=== PATIENT | female | born 1935 | race Caucasian/White ===

== ENCOUNTER 2018-12-14 16:50 | Inpatient (IN) | payer MEDICARE, SELFPAY ==
[2018-12-14] VITALS (11 sets, daily range): BP systolic 134–167; BP diastolic 63–99; PULSE 81–103; RESP 16–23; TEMP 37.6–37.7; O2SAT 94–99; BMI 44.9; BMI 48.3
--- NOTE | 2018-12-14 17:16 | EKG12_ITS ---
Test Reason : Blood Pressure : / mmHG Vent. Rate : 086 BPM Atrial Rate : 086 BPM P-R Int : 220 ms QRS Dur : 092 ms QT Int : 362 ms P-R-T Axes : 095 000 095 degrees QTc Int : 433 ms Sinus rhythm with 1st degree A-V block with Premature supraventricular complexes and with occasional Premature ventricular complexes Anteroseptal infarct (cited on or before 07-JUL-2014), age undetermined Abnormal ECG Confirmed by VASQUEZ ANDERSON, CHON ([id number]), science editor DIMITRIOS STONE ([id number]) on 12/19/2018 8:23:34 AM Referred By: TIFFANY Confirmed By:CHON OVALLE MD
--- NOTE | 2018-12-14 17:17 | RAD_ITS ---
STUDY: X-RAY - LEFT TIBIA AND FIBULA REASON FOR EXAM: Female, 83 years old. Left lower extremity swelling TECHNIQUE: AP and lateral view(s) of the tibia and fibula were obtained. COMPARISON: None. FINDINGS: Normal visualized tibia. Normal visualized fibula. No acute fractures. There are tricompartmental osteophytes at the knee. There is significant soft tissue edema. There is focal 6.8 cm soft tissue density medial and posterior to the mid diaphysis of the tibia. RAD/Tibia & Fibula 2 Views IMPRESSION: significant soft tissue edema. There is focal 6.8 cm soft tissue density medial and posterior to the mid diaphysis of the tibia. This is suspicious for soft tissue mass versus infectious inflammatory process. This could be further evaluated with MRI or CT if clinically warranted No acute fractures Tricompartmental osteoarthrosis of the knee Electronically Signed: Joss Castaneda, at 20:30 EDT Tel , Service support ,
--- NOTE | 2018-12-14 17:17 | RAD_ITS ---
STUDY: X-RAY - LEFT FOOT CLINICAL: Female, 83 years old. Pain TECHNIQUE: 3 view(s) of the foot. COMPARISON: None. FINDINGS: There is significant generalized osteopenia. There is soft tissue edema. There is Hallux valgus deformity of first metatarsophalangeal joint with osteophyte formation. There is minimal 2 mm soft tissue ossification. No acute fractures. There are osteophytes at the tarsometatarsal joints.. RAD/Foot min 3 Views IMPRESSION: generalized osteopenia, no fracture Soft tissue edema Osteoarthrosis Calcaneal spur Electronically Signed: Joss Castaneda, at 20:22 EDT Tel , Service support ,
--- NOTE | 2018-12-14 17:18 | ED.VIS.GEN ---
History of Present Illness Chief Complaint: Cellulitis Informant: Patient, Family Current Severity: Moderate Maximum Severity: Severe Worsened by: palpation, moving LLE Relieved by: remaining still Narrative: For the last 2-3 days, patient has had what they thought was a stomach virus, with vomiting and diarrhea without any blood or melena, and generalized abdominal soreness, along with the chest discomfort that worsens when she vomits. The chest discomfort has been persistent today, substernal, aching. No dyspnea. She states today the vomiting and diarrhea have been better and she has been drinking fluids, but the daughter came home from work this afternoon and noticed her entire left leg is red and she does not remember seeing that before but they are unsure when exactly it started. When asked when either 1 of them saw it for sure without any erythema was 3 or 4 days ago. They state that for the last week or 7 days, she has been having edema of the leg and seeping of clear fluid in areas but no redness. She has been having fevers and chills since the vomiting and diarrhea started several days ago, and although those symptoms have improved, she continues to feel feverish today and malaised. - Past Medical History (1) Asthma Status: Chronic (2) Benign essential HTN Status: Chronic (3) COLD (chronic obstructive lung disease) Status: Chronic (4) Chronic kidney disease Status: Chronic Comment: secondary to DM (5) Diabetic neuropathy Status: Chronic (6) GERD (gastroesophageal reflux disease) Status: Chronic (7) Hyperlipidemia Status: Chronic (8) Hypothyroidism Status: Chronic (9) Morbid obesity Status: Chronic (10) PVD (peripheral vascular disease) Status: Chronic Past Medical History - Allergies and Home Meds Allergies/Adverse Reactions: Allergies homatropine [From Hycodan (with homatropin)] Allergy (Verified 12/14/18 16:54) Nausea homatropine methylbromide [From Hycodan (with homatropin)] Allergy (Verified 12/14/18 16:54) Nausea hydrocodone bitartrate [From Vicodin] Allergy (Verified 12/14/18 16:54) Other maitake mushroom Allergy (Verified 12/14/18 16:54) Rash Primary Care Physician: Nicola Dailey MD [STAFF PHYSICIAN] - Surgical History: appendectomy, cholecystectomy, tonsillectomy, - - Right oophorectomy, cardiac stents. Lives: With Family Smoking Status: Never smoker - Family History Sibling Family History: Reports: Heart Disease Paternal Family History: Reports: Diabetes, Heart Disease, - - Father at the age of 56 of emphysema. Maternal Family History: Reports: - - Her mother lived to be 97 and of old age. Review of Systems General: Reports: Chills, Fever, Malaise Eyes: Denies: Visual changes - bilaterally, Diplopia ENT: Denies: Rhinorrhea, Sore throat Cardiovascular: Reports: Chest pain. Denies: Palpitations Respiratory: Denies: Dyspnea, Cough, Dyspnea on exertion Gastrointestinal: Reports: Abdominal pain - , Nausea - sore everywhere, Vomiting, Diarrhea. Denies: Melena, Hematochezia Genitourinary: Denies: Dysuria, Hematuria, Frequency Musculoskeletal: Reports: Swelling, Extremity Pain. Denies: Back pain Skin: Reports: Rash, Wounds Neurological: Denies: Headache, Weakness, Numbness Physical Exam Vital Signs/Narrative: Vital Signs Temp Pulse Resp BP Pulse Ox 12/14/18 16:51 99.8 F H 84 16 143/76 H 96 Inital Vital Signs reviewed: Yes 1 - affected cellulitic area 2 - affected cellulitic area General: Well nourished, Well developed, Obese, Unkempt, No Acute Distress Head: Normocephalic, Atraumatic Eyes: Perrl, EOMI ENT: Moist mucous membranes, No rhinorrhea Neck: Supple, Nontender Cardiovascular: Irregular, Tachycardia Respiratory: No distress, CTA bilaterally, Chest nontender Abdomen: Soft, Nondistended, Normal bowel sounds, Tender - mild, diffuse. Negative for: Guarding, Rebound tenderness Extremities: Tenderness - throughout LLE erythemetous area, Edema - LLE > RLE w/ serous seeping; one large 5cm nonruptured bulla medial left lower leg filled w/ serous fluid; no abscesses. Skin: No Trauma, Rash - Diffuse left lower extremity extending to the medial and lateral aspects of the thigh, no palpable cords, no subcutaneous emphysema, not expanding/extending during the exam. No bleeding. Able to move knee and ankle with good short arc range of motion without significant pain, but all erythematous area in left lower extremity which is in stocking glove distribution below the knee, is very tender. There is a scab plantar aspect of the heel that is tender but no discharge. There are several ruptured bullae that appears superficial and one nonruptured medially as described above. No lymphangitis. Some petechiae within the area posteriorly/dependent. Neurological: Alert, Oriented x3, Cranial nerves II-XII grossly intact, Normal Strength, Normal Sensation Psychological: Normal affect, Normal Mood Diagnostic/Tx/Re-eval 12/14/18 17:17 Foot min 3 Views [RAD] Stat Tibia & Fibula 2 Views [RAD] Stat 12/14/18 19:05 Chest 1 View (Portable) [RAD] Stat Laboratory Results 12/14/18 12/14/18 12/14/18 17:55 17:55 17:55 WBC 13.3 H RBC 4.39 Hgb 12.7 Hct 37.9 MCV 86.3 MCH 28.9 MCHC 33.5 RDW 14.8 H RDW Differential 46.3 H Plt Count 196 MPV 9.7 Immature Gran % (Auto) 0.300 Neut % (Auto) 85.2 H Lymph % (Auto) 7.1 L Harmon % (Auto) 7.1 Eos % (Auto) 0.1 Baso % (Auto) 0.2 Absolute Neuts (auto) 11.4 H Absolute Lymphs (auto) 0.94 Total Counted Not Reportable PT 16.9 H INR 1.4 APTT 36.3 H Sodium 132 L Potassium 3.6 Chloride 98 Carbon Dioxide 25.0 Anion Gap 9 BUN 39 H Creatinine 1.63 H Estim Creat Clear Calc 24.36 Est GFR (MDRD) Af Amer 39 L Est GFR (MDRD) Non-Af 32 L BUN/Creatinine Ratio 23.9 H Glucose 217 H Lactic Acid Calcium 9.1 Total Bilirubin 0.90 AST 26 ALT 22 Alkaline Phosphatase 101 Troponin I 1.050 H* Total Protein 6.8 Albumin 2.6 L Globulin 4.2 Albumin/Globulin Ratio 0.6 L 12/14/18 17:55 WBC RBC Hgb Hct MCV MCH MCHC RDW RDW Differential Plt Count MPV Immature Gran % (Auto) Neut % (Auto) Lymph % (Auto) Harmon % (Auto) Eos % (Auto) Baso % (Auto) Absolute Neuts (auto) Absolute Lymphs (auto) Total Counted PT INR APTT Sodium Potassium Chloride Carbon Dioxide Anion Gap BUN Creatinine Estim Creat Clear Calc Est GFR (MDRD) Af Amer Est GFR (MDRD) Non-Af BUN/Creatinine Ratio Glucose Lactic Acid 1.9 Calcium Total Bilirubin AST ALT Alkaline Phosphatase Troponin I Total Protein Albumin Globulin Albumin/Globulin Ratio - Rhythm Strip Rhythm Strip: Sinus Rhythm Rate: 86 Ectopy: PVC(s) - EKG Initial EKG Interpretation: Sinus Rhythm, No Acute Injury Pattern, - - 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 PVCs. Prior: Unchanged - Medical Decision Making Patient has extensive left lower extremity cellulitis. There is the possibility that the onset and spread was extremely fast, but there is some limited history there. Therefore early in the visit after the exam, I estephania a line around the proximal extent of the erythema. On multiple rechecks during her several-hour ED stay, the redness did not change or go beyond the line. Antibiotics were ordered along with the initial work-up including blood cultures and lactate. She has a leukocytosis but more concerning is that her troponin came back at 1.050. On recheck, she states her chest discomfort is gone. On my interpretation, x-rays of the chest, foot, and lower leg are unremarkable. I see no subcutaneous/fascial air, or bony involvement. Her chest discomfort has been intermittent lasting minutes at a time for the last couple days, she thought it was related to her vomiting. She is on Eliquis and took her dose this morning. I discussed with Dr. Kimball, who advised holding her Eliquis, continuing to monitor her, he had no issue with topical nitroglycerin paste, and would evaluate her in the morning. Will admit to hospitalist for further treatment. ED Disposition - Plan for ED Patient: Disposition: Acute Care Hospital [facility] Diagnosis: NSTEMI (non-ST elevated myocardial infarction), Cellulitis of left lower extremity, CRI (chronic renal insufficiency), Nausea vomiting and diarrhea Referrals: Nicola Dailey MD [STAFF PHYSICIAN] -
[2018-12-14 18:19] LABS: Absolute Lymphocyte Count 0.94 X10^3/ul (0.83-4.51); Absolute Neutrophil Count 11.4 X10^3/uL (2.0-7.7); Basophil# 0.02 X10^3/uL; Basophil% 0.2 % (0-1); Eosinophil# 0.01 X10^3/uL; Eosinophils% 0.1 % (0-5); Hematocrit 37.9 % (37-47); Hemoglobin 12.7 g/dl (12.0-15.0); Lymphocyte # 0.94 X10^3/ul (4.0); Lymphocyte % 7.1 % (19-41); Mean Corp Hgb Conc 33.5 g/gl (32-36); Mean Corpuscular Hgb 28.9 pg (27.0-32.0); Mean Corpuscular Volume 86.3 fL (81-99); Mean Platelet Vol. 9.7 fl (6.2-12.0); Monocyte# 0.94 X10^3/uL; Monocyte% 7.1 % (0-10); Neutrophil # 11.36 X10^3/uL (2.7-7.7); Neutrophil % 85.2 % (47-70); Platelet Count 196 K/mm3 (150-450); RBC Distribution Width CV 14.8 % (11.6-14.6); RBC Distribution Width SD 46.3 fl (35.1-43.9); Red Blood Count 4.39 M/mm3 (4.2-5.4); White Blood Count 13.3 K/mm3 (4.4-11.0)
[2018-12-14 18:20] LABS: POSITIVE COUNT NO; POSITIVE DIFFERENTIAL NO; POSITIVE MORPHOLOGY NO
[2018-12-14 18:22] LABS: International Normalized Ratio 1.4; Prothrombin Time (Protime)PT. 16.9 SECONDS (11.7-14.9)
[2018-12-14 18:23] LABS: Partial Thromboplast Time 36.3 Seconds (24.1-36.2)
[2018-12-14 18:31] LABS: ALB/GLOB Ratio 0.6 RATIO (0.9-2.4); AST(SGOT) 26 U/L (15-37); Alanine Aminotransfer ALT/SGPT 22 U/L (13-56); Albumin, Serum 2.6 g/dL (3.2-5.0); Alkaline Phosphatase 101 U/L (45-117); Anion Gap 9 (5-15); BUN 39 mg/dL (7-18); BUN/Creat Ratio 23.9 RATIO (10-20); Calcium,Total 9.1 mg/dL (8.5-10.1); Chloride 98 mmol/L (98-107); Creatinine, Serum 1.63 mg/dL (0.55-1.02); EST Glomerular Filtration Rate 32 mL/min (>60); Est Glom Filt Rate - Afr Amer 39 mL/min (>60); Estimated Creatinine Clearance 24.36 ml/min; Globulin 4.2 g/dL (2.2-4.2); Glucose 217 mg/dL (74-106); Lactic Acid 1.9 mmol/L (0.4-2.0); Potassium 3.6 mmol/L (3.5-5.1); Protein, Total 6.8 g/dL (6.4-8.2); Sodium Level 132 mmol/L (136-145)
--- NOTE | 2018-12-14 19:05 | RAD_ITS ---
STUDY: X-RAY CHEST REASON FOR EXAM: Female, 83 years old. Left lower extremity swelling TECHNIQUE: Portable chest COMPARISON: 12/17/2016 FINDINGS: There is a mild left lower lobe infiltrate. There is no demonstrated pleural abnormality. Normal size heart. Normal mediastinum and leonard. Normal visualized pulmonary arteries. Normal visualized aortic arch and descending thoracic aorta. Normal visualized thoracic spine. Normal visualized ribs, clavicles, and shoulders. There is no demonstrated abnormality of the visualized soft tissue structures of the upper abdomen. RAD/Chest 1 View (Portable) IMPRESSION: Mild left lower lobe infiltrate Electronically Signed: Joss Castaneda, at 20:39 EDT Tel , Service support ,
--- NOTE | 2018-12-14 20:03 | PCM.HP.STD ---
Problem List (1) Cellulitis of left lower extremity Status: Acute (2) NSTEMI (non-ST elevated myocardial infarction) Status: Acute (3) Nausea vomiting and diarrhea Status: Acute (4) Asthma Status: Chronic Qualifiers: Asthma severity: unspecified severity Asthma persistence: unspecified Asthma complication type: unspecified Qualified Code(s): J45.909 - Unspecified asthma, uncomplicated (5) COLD (chronic obstructive lung disease) Status: Chronic Qualifiers: COPD type: unspecified COPD Qualified Code(s): J44.9 - Chronic obstructive pulmonary disease, unspecified (6) Chronic kidney disease Status: Chronic Qualifiers: Chronic kidney disease stage: stage 3 (moderate) Qualified Code(s): N18.3 - Chronic kidney disease, stage 3 (moderate) Comment: secondary to DM (7) Diabetes mellitus Status: Chronic Qualifiers: Diabetes mellitus type: type 2 Diabetes mellitus senior care insulin use: with ocean transportation intermediary use Diabetes mellitus complication status: with unspecified complications Qualified Code(s): E11.8 - Type 2 diabetes mellitus with unspecified complications; Z79.4 - buttermaker continuous churn (current) use of insulin (8) GERD (gastroesophageal reflux disease) Status: Chronic Qualifiers: Esophagitis presence: esophagitis presence not specified Qualified Code(s): K21.9 - Gastro-esophageal reflux disease without esophagitis (9) H/O coronary angioplasty Status: Chronic (10) Hyperlipidemia Status: Chronic Qualifiers: Hyperlipidemia type: unspecified Qualified Code(s): E78.5 - Hyperlipidemia, unspecified (11) Hypertension Status: Chronic Qualifiers: Hypertension type: essential hypertension Qualified Code(s): I10 - Essential (primary) hypertension (12) Hypothyroidism Status: Chronic Qualifiers: Hypothyroidism type: unspecified Qualified Code(s): E03.9 - Hypothyroidism, unspecified (13) Morbid obesity Status: Chronic (14) PVD (peripheral vascular disease) Status: Chronic History of Present Illness Date of Admission: 12/14/18 Chief Complaint: LLE pain, edema, redness The patient is a 83 y/o F w/ PMHx: Diabetes mellitus type II w/ Neuropathy, Morbid Obesity, GERD, Hypothyroidism, Allergic Rhinitis, HTN, HLD, CAD s/p PCI, Chronic COPD and Asthma, CKD stage III (baseline Cr 1.6), PVD, PAF on oral anticoagulation who presents to the [facility] ED on 12/14/18 with history of recent onset GI illness with nausea, emesis and diarrhea with fatigue, malaise with similar ill contacts ongoing now for the past 2 to 3 days with diarrhea more severe on day of presentation with additionally onset over the past 2 days left lower extremity worsened edema, redness, pain with notable posterior bullae enlarging over the last 2 weeks in addition to mid and left sternal chest discomfort described as both sharp and pressure-like in sensation, rated 4-5 out of 10 with associated nausea, dyspnea and diaphoresis over the last 48 hours, increased with any exertional effort including having to use the restroom or with coughing, lasting only minutes and resolving prompting eventual presentation to the ED given all of her ongoing acute issues. She also notes that she does have allergic rhinitis and has had ongoing mildly productive cough over the last 2 weeks with postnasal drip. Upon evaluation in ED she denies any chest discomfort. Work-up in the ED included T 99.8, heart rate 84, BP 143/76, respiratory rate 16, 96% on room air, CBC with WBC 13.3, hemoglobin 12.7, platelet 196 with left shift, coag studies with PT 16.9, INR 1.4, PTT 36.3, CMP with sodium 132, BUN/Cr 39/1.63, glucose 217, Trop 1.050, plain film of the foot and tib/fib w/ with evidence of edema, CXR w/ no acute findings, EKG w/ SR, prior evidence NJ, without acute evidence of ischemia. In the ED patient administered Zosyn. Past Medical History Past Medical History (Chronic Problems): Chronic Problems CRI (chronic renal insufficiency) (Chronic) Morbid obesity (Chronic) H/O coronary angioplasty (Chronic) Tinea unguium (Chronic) Vitamin D deficiency (Chronic) GERD (gastroesophageal reflux disease) (Chronic) Hyperlipidemia (Chronic) Hypertension (Chronic) Diabetes mellitus (Chronic) COLD (chronic obstructive lung disease) (Chronic) Chronic kidney disease (Chronic) secondary to DM Benign essential HTN (Chronic) Hypothyroidism (Chronic) Urinary incontinence (Chronic) Diabetic neuropathy (Chronic) PVD (peripheral vascular disease) (Chronic) Asthma (Chronic) Allergies homatropine [From Hycodan (with homatropin)] Allergy (Verified 12/14/18 16:54) Nausea homatropine methylbromide [From Hycodan (with homatropin)] Allergy (Verified 12/14/18 16:54) Nausea hydrocodone bitartrate [From Vicodin] Allergy (Verified 12/14/18 16:54) Other maitake mushroom Allergy (Verified 12/14/18 16:54) Rash Home Medications: Ambulatory Orders Medication Instructions Recorded Metoprolol Tartrate [Lopressor 25 mg PO BID 07/07/14 (beta susie)] Ranitidine [Zantac] 150 mg PO BID 06/18/16 Nitroglycerin (INPATIENT USE) 0.4 mg SUBLINGUAL Q5M PRN 11/18/16 [Nitrostat] Acetaminophen [Tylenol] 1,000 mg PO Q8H PRN tablet 12/28/16 Albuterol Aerosols [Ventolin 2.5 mg INHALATION Q6H PRN PRN #60 12/28/16 Aerosols] Menthol/Lanolin/Calamine/Znox 1 applic TOPICAL TID #1 tube 12/28/16 [Calmoseptine Ointment] Apixaban [Eliquis] 2.5 mg PO BID 12/14/18 Atorvastatin Calcium [Lipitor] 80 mg PO QHS 12/14/18 Cholecalciferol (Vitamin D3) 8,000 unit PO DAILY 12/14/18 [Vitamin D3] Clonidine HCl [Catapres] 0.1 mg PO BID 12/14/18 Fluticasone 0.05% [Flonase Nasal 1 spray NASAL DAILY PRN PRN 12/14/18 [place]] Hydrochlorothiazide 12.5 mg PO DAILY 12/14/18 Insulin NPH Hum/Reg Insulin Hm 10 units SQ TIDCM 12/14/18 [Relion Novolin 70-30 Vial] Insulin NPH Human Isophane 35 units SQ BID 12/14/18 [Novolin N] Levothyroxine Sodium [Synthroid] 137 mcg PO DAILY 12/14/18 Montelukast [Singulair] 10 mg PO QHS 12/14/18 Olopatadine HCl 1 drop EACH EYE DAILY 12/14/18 Surgical History: appendectomy, cholecystectomy, tonsillectomy, - - Right oophorectomy, cardiac stents. Psychiatric History: No pertinent psych hx AMUSEMENT RIDE INSPECTOR History: No pertinent AMUSEMENT RIDE INSPECTOR history Lives: With Family Smoking Status: Never smoker Tobacco Use: Non-smoker Alcohol: None Drugs: None - *Family History Sibling History Items: Heart Disease Paternal History Items: Diabetes, Heart Disease, - - Father at the age of 56 of emphysema. Maternal History Items: - - Her mother lived to be 97 and of old age. Review of Systems Constitutional: Reports: Anorexia, Malaise, Weakness, Fatigue. Denies: Chills, Fever, Weight Change HEENT: Reports: Post Nasal Drip, Sinus Congestion, Sinus Drainage. Denies: Head Aches Cardiovascular: Reports: Chest Pain, Chest Tightness, Edema. Denies: Heaviness, Light Headedness, Orthopnea, Palpitations, Syncope Respiratory: Reports: Cough, Sputum production. Denies: Shortness of breath at rest Gastrointestinal: Reports: Abdominal Pain, Diarrhea, Nausea, Vomiting Genitourinary: Reports: Incontinence. Denies: Dysuria Musculoskeletal: Reports: Back Pain, Joint Pain. Denies: Joint Tenderness Skin: Reports: Skin Changes. Denies: Rash, Wounds Neurological: Denies: Numbness, Tingling, Focal weakness Psychiatric: Denies: Anxiety, Depression, Homicidal Ideations, Suicidal Ideations Hematologic/ Lymphatic: Reports: Easy Bruising, Easy Bleeding VTE Information - Inpt Only VTE Present on Admission: No VTE Mechan Device Prophylaxis: SCD's VTE Pharm Prophylaxis ordered?: No Patient Problems: Active and Suspected Problems NSTEMI (non-ST elevated myocardial infarction) (Acute) Cellulitis of left lower extremity (Acute) Nausea vomiting and diarrhea (Acute) Subjective: Patient seated upright in the bed, fatigued appearing, notes discomfort primarily LLE and posterior region. Objective: Physical Examination: General: awake, alert, oriented x 3 and cooperative, seated upright in the ED bed in no apparent distress, fatigued and ill appearing, uncomfortable. Skin: normal color, turgor, no icterus, cyanosis except LLE w/ notable edema pedal to knee, mediolateral enlarging bullae, yellow-serous appearance, erythema circumferentially, posterior coccyx with stage II decub. HEENT: AT/NC, EOMI, PERRLA, dry MM, no carotid bruits or JVD noted; however, thickened neck makes examination difficult. Lungs: CTA bilaterally, moderate effort, moderate decrease BL bases, no rales, ronchi or wheezing, occasional coughing. Heart: Regular rate and rhythm; no gallop, rub audible. Abdomen: soft, morbidly obese, NTTP, ND, normal BS, no HSM; however, habitus makes examination difficult. : Notable excoriation, beefy red. Extremities: no cyanosis, clubbing, see skin. Neurological: patient awake, alert, oriented x 3; cognitive function intact; pupils equally reactive to light and accomodation; cranial nerves II-XII grossly normal, moving all 4 extremities although LLE notably limited secondary to pain, strength accordingly severe globally decreased. Psychiatric: affect appears fatigued, ill, no acute evidence of depressive or anxiety feelings. - Physical Exam Vital Signs Temp Pulse Resp BP Pulse Ox 99.6 F H 85 18 167/82 H 96 12/14/18 18:06 12/14/18 19:00 12/14/18 19:00 12/14/18 19:00 12/14/18 19:00 Oxygen Delivery Method Room Air Weight: 270 lb Body Mass Index (BMI) 44.9 Finger Stick Blood Glucose 575 Laboratory Tests Past 24 Hrs 12/14/18 12/14/18 12/14/18 17:55 17:55 17:55 WBC 13.3 H RBC 4.39 Hgb 12.7 Hct 37.9 MCV 86.3 MCH 28.9 MCHC 33.5 RDW 14.8 H RDW Differential 46.3 H Plt Count 196 MPV 9.7 Immature Gran % (Auto) 0.300 Neut % (Auto) 85.2 H Lymph % (Auto) 7.1 L Terrell % (Auto) 7.1 Eos % (Auto) 0.1 Baso % (Auto) 0.2 Absolute Neuts (auto) 11.4 H Absolute Lymphs (auto) 0.94 Total Counted Not Reportable PT 16.9 H INR 1.4 APTT 36.3 H Sodium 132 L Potassium 3.6 Chloride 98 Carbon Dioxide 25.0 Anion Gap 9 BUN 39 H Creatinine 1.63 H Estim Creat Clear Calc 24.36 Est GFR (MDRD) Af Amer 39 L Est GFR (MDRD) Non-Af 32 L BUN/Creatinine Ratio 23.9 H Glucose 217 H Lactic Acid Calcium 9.1 Total Bilirubin 0.90 AST 26 ALT 22 Alkaline Phosphatase 101 Troponin I 1.050 H* Total Protein 6.8 Albumin 2.6 L Globulin 4.2 Albumin/Globulin Ratio 0.6 L 12/14/18 17:55 WBC RBC Hgb Hct MCV MCH MCHC RDW RDW Differential Plt Count MPV Immature Gran % (Auto) Neut % (Auto) Lymph % (Auto) Terrell % (Auto) Eos % (Auto) Baso % (Auto) Absolute Neuts (auto) Absolute Lymphs (auto) Total Counted PT INR APTT Sodium Potassium Chloride Carbon Dioxide Anion Gap BUN Creatinine Estim Creat Clear Calc Est GFR (MDRD) Af Amer Est GFR (MDRD) Non-Af BUN/Creatinine Ratio Glucose Lactic Acid 1.9 Calcium Total Bilirubin AST ALT Alkaline Phosphatase Troponin I Total Protein Albumin Globulin Albumin/Globulin Ratio Assessment/Plan All Active Problems NSTEMI (non-ST elevated myocardial infarction) (Acute) Cellulitis of left lower extremity (Acute) Nausea vomiting and diarrhea (Acute) Hyponatremia (Acute) Cellulitis (Acute) Blister of toe of right foot (Acute) Hyperosmolar nonketotic coma in diabetes (Acute) Atrial fibrillation with rapid ventricular response (Acute) Urinary tract infection due to Klebsiella species (Acute) Community acquired pneumonia (Acute) Severe sepsis (Acute) New onset atrial fibrillation (Acute) Pneumonia (Acute) Acute respiratory failure with hypoxia (Acute) Rhinovirus infection (Acute) Cystitis (Acute) Sepsis (Acute) UTI (urinary tract infection) (Acute) Nephrolithiasis (Acute) The patient is a 83 y/o F w/ PMHx: Diabetes mellitus type II w/ Neuropathy, Morbid Obesity, GERD, Hypothyroidism, Allergic Rhinitis, HTN, HLD, CAD s/p PCI, Chronic COPD and Asthma, CKD stage III (baseline Cr 1.6), PVD, PAF on oral anticoagulation who presents to the [facility] ED on 12/14/18 with history of recent onset GI illness with nausea, emesis and diarrhea with fatigue, malaise with similar ill contacts ongoing now for the past 2 to 3 days with diarrhea more severe on day of presentation with additionally onset over the past 2 days left lower extremity worsened edema, redness, pain with notable posterior bullae enlarging over the last 2 weeks in addition to mid and left sternal chest discomfort described as both sharp and pressure-like in sensation, rated 4-5 out of 10 with associated nausea, dyspnea and diaphoresis over the last 48 hours, increased with any exertional effort including having to use the restroom or with coughing, lasting only minutes and resolving prompting eventual presentation to the ED given all of her ongoing acute issues. (1) LLE Extremity Cellulitis: Will admit to PCU given #2, maintain on IV vanc and zosyn, plan repeat CBC in AM, continue affected extremity elevation above heart when seated and in bed, monitor erythema outline with VS checks. DVT US LLE pending. (2) Chest Pain w/ Acute NSTEMI: Work-up in the ED included T 99.8, heart rate 84, BP 143/76, respiratory rate 16, 96% on room air, CBC with WBC 13.3, hemoglobin 12.7, platelet 196 with left shift, coag studies with PT 16.9, INR 1.4, PTT 36.3, CMP with sodium 132, BUN/Cr 39/1.63, glucose 217, Trop 1.050, plain film of the foot and tib/fib w/ with evidence of edema, CXR w/ no acute findings, EKG w/ SR, prior evidence [place], without acute evidence of ischemia. Will maintain on a monitored bed, continue serial cardiac enzymes and EKGs. Obtain magnesium level upon admission. Holding eliquis. Continue medical management w/ asa, BB, statin w/ AM FLP. ECHO ordered. Cardiology consulted. ASA, NG, morphine. (3) N/V/D, Gastroenteritis, Suspect likely Viral (Recent similar ill contacts): Will continue hydration, will obtain c diff, stool cx with repeat AM CBC. Suspect viral gastroenteritis. Anti-emetics, pain regimen PRN. (4) Allergic Rhinitis with Post-nasal drip: Cough ongoing, allergies notable, mildly productive cough, CXR without acute findings, will maintain on ATC duoneb, PRN albuterol, flonase, singulair regimen. (5) Stage II Coccyx Decubitous Ulcer: Barrier cream, offloading, wound RN consultation. (6) CAD: Holding eliquis, maintain on asa, BB, statin. (7) PAF: SR on EKG upon presentation, holding eliquis, maintain on BB. (8) Hyperlipidemia: Continue home statin regimen. AM FLP. (9) Hypertension: Continue home regimen including clonidine, metoprolol, PRN hydralazine. (10) Hypothyroidism: Continue home synthroid regimen. (11) Chronic COPD and Asthma: Will maintain on oxygen with wean as tolerated to room air, continue ATC duonebs, PRN albuterol, HOB, IS parameters. (12) Diabetes mellitus type II with neuropathy: Hold oral home regimen, continue home insulin regimen, ADA diet, accu checks w/ ISS. (13) Morbid Obesity: Weight loss and lifestyle changes encouraged, nutrition consulted. (14) Chronic Kidney Disease Stage III: Admission BUN/Cr 39/1.63, baseline renal function 1.6, stable, repeat BMP in AM. (15) GERD: Continue home ranitidine. (16) DVT Prophylaxis: SCDs, holding eliquis. Code Visit Inpatient E&M: 58762 Init Hosp L3
--- NOTE | 2018-12-14 20:09 | HP.PCM_ITS ---
Problem List (1) Cellulitis of left lower extremity Status: Acute (2) NSTEMI (non-ST elevated myocardial infarction) Status: Acute (3) Nausea vomiting and diarrhea Status: Acute (4) Asthma Status: Chronic Qualifiers: Asthma severity: unspecified severity Asthma persistence: unspecified Asthma complication type: unspecified Qualified Code(s): J45.909 - Unspecified asthma, uncomplicated (5) COLD (chronic obstructive lung disease) Status: Chronic Qualifiers: COPD type: unspecified COPD Qualified Code(s): J44.9 - Chronic obstructive pulmonary disease, unspecified (6) Chronic kidney disease Status: Chronic Qualifiers: Chronic kidney disease stage: stage 3 (moderate) Qualified Code(s): N18.3 - Chronic kidney disease, stage 3 (moderate) Comment: secondary to DM (7) Diabetes mellitus Status: Chronic Qualifiers: Diabetes mellitus type: type 2 Diabetes mellitus assistant terminal manager insulin use: with assistant terminal manager use Diabetes mellitus complication status: with unspecified complications Qualified Code(s): E11.8 - Type 2 diabetes mellitus with unspecified complications; Z79.4 - assistant terminal manager (current) use of insulin (8) GERD (gastroesophageal reflux disease) Status: Chronic Qualifiers: Esophagitis presence: esophagitis presence not specified Qualified Code(s): K21.9 - Gastro-esophageal reflux disease without esophagitis (9) H/O coronary angioplasty Status: Chronic (10) Hyperlipidemia Status: Chronic Qualifiers: Hyperlipidemia type: unspecified Qualified Code(s): E78.5 - Hyperlipidemia, unspecified (11) Hypertension Status: Chronic Qualifiers: Hypertension type: essential hypertension Qualified Code(s): I10 - Essential (primary) hypertension (12) Hypothyroidism Status: Chronic Qualifiers: Hypothyroidism type: unspecified Qualified Code(s): E03.9 - Hypothyroidism, unspecified (13) Morbid obesity Status: Chronic (14) PVD (peripheral vascular disease) Status: Chronic History of Present Illness Date of Admission: 12/14/18 Chief Complaint: LLE pain, edema, redness The patient is a 83 y/o F w/ PMHx: Diabetes mellitus type II w/ Neuropathy, Morbid Obesity, GERD, Hypothyroidism, Allergic Rhinitis, HTN, HLD, CAD s/p PCI, Chronic COPD and Asthma, CKD stage III (baseline Cr 1.6), PVD, PAF on oral anticoagulation who presents to the [facility] ED on 12/14/18 with history of recent onset GI illness with nausea, emesis and diarrhea with fatigue, malaise with similar ill contacts ongoing now for the past 2 to 3 days with diarrhea more severe on day of presentation with additionally onset over the past 2 days left lower extremity worsened edema, redness, pain with notable posterior bullae enlarging over the last 2 weeks in addition to mid and left sternal chest discomfort described as both sharp and pressure-like in sensation, rated 4-5 out of 10 with associated nausea, dyspnea and diaphoresis over the last 48 hours, increased with any exertional effort including having to use the restroom or with coughing, lasting only minutes and resolving prompting eventual presentation to the ED given all of her ongoing acute issues. She also notes that she does have allergic rhinitis and has had ongoing mildly productive cough over the last 2 weeks with postnasal drip. Upon evaluation in ED she denies any chest discomfort. Work-up in the ED included T 99.8, heart rate 84, BP 143/76, respiratory rate 16, 96% on room air, CBC with WBC 13.3, hemoglobin 12.7, platelet 196 with left shift, coag studies with PT 16.9, INR 1.4, PTT 36.3, CMP with sodium 132, BUN/Cr 39/1.63, glucose 217, Trop 1.050, plain film of the foot and tib/fib w/ with evidence of edema, CXR w/ no acute findings, EKG w/ SR, prior evidence LA, without acute evidence of ischemia. In the ED patient administered Zosyn. Past Medical History Past Medical History (Chronic Problems): Chronic Problems CRI (chronic renal insufficiency) (Chronic) Morbid obesity (Chronic) H/O coronary angioplasty (Chronic) Tinea unguium (Chronic) Vitamin D deficiency (Chronic) GERD (gastroesophageal reflux disease) (Chronic) Hyperlipidemia (Chronic) Hypertension (Chronic) Diabetes mellitus (Chronic) COLD (chronic obstructive lung disease) (Chronic) Chronic kidney disease (Chronic) secondary to DM Benign essential HTN (Chronic) Hypothyroidism (Chronic) Urinary incontinence (Chronic) Diabetic neuropathy (Chronic) PVD (peripheral vascular disease) (Chronic) Asthma (Chronic) Allergies homatropine [From Hycodan (with homatropin)] Allergy (Verified 12/14/18 16:54) Nausea homatropine methylbromide [From Hycodan (with homatropin)] Allergy (Verified 12/14/18 16:54) Nausea hydrocodone bitartrate [From Vicodin] Allergy (Verified 12/14/18 16:54) Other maitake mushroom Allergy (Verified 12/14/18 16:54) Rash Home Medications: Ambulatory Orders Medication Instructions Recorded Metoprolol Tartrate [Lopressor 25 mg PO BID 07/07/14 (beta susie)] Ranitidine [Zantac] 150 mg PO BID 06/18/16 Nitroglycerin (INPATIENT USE) 0.4 mg SUBLINGUAL Q5M PRN 11/18/16 [Nitrostat] Acetaminophen [Tylenol] 1,000 mg PO Q8H PRN tablet 12/28/16 Albuterol Aerosols [Ventolin 2.5 mg INHALATION Q6H PRN PRN #60 12/28/16 Aerosols] Menthol/Lanolin/Calamine/Znox 1 applic TOPICAL TID #1 tube 12/28/16 [Calmoseptine Ointment] Apixaban [Eliquis] 2.5 mg PO BID 12/14/18 Atorvastatin Calcium [Lipitor] 80 mg PO QHS 12/14/18 Cholecalciferol (Vitamin D3) 8,000 unit PO DAILY 12/14/18 [Vitamin D3] Clonidine HCl [Catapres] 0.1 mg PO BID 12/14/18 Fluticasone 0.05% [Flonase Nasal 1 spray NASAL DAILY PRN PRN 12/14/18 [place]] Hydrochlorothiazide 12.5 mg PO DAILY 12/14/18 Insulin NPH Hum/Reg Insulin Hm 10 units SQ TIDCM 12/14/18 [Relion Novolin 70-30 Vial] Insulin NPH Human Isophane 35 units SQ BID 12/14/18 [Novolin N] Levothyroxine Sodium [Synthroid] 137 mcg PO DAILY 12/14/18 Montelukast [Singulair] 10 mg PO QHS 12/14/18 Olopatadine HCl 1 drop EACH EYE DAILY 12/14/18 Surgical History: appendectomy, cholecystectomy, tonsillectomy, - - Right oophorectomy, cardiac stents. Psychiatric History: No pertinent psych hx OBSTETRIC ANAESTHETIST History: No pertinent OBSTETRIC ANAESTHETIST history Lives: With Family Smoking Status: Never smoker Tobacco Use: Non-smoker Alcohol: None Drugs: None - *Family History Sibling History Items: Heart Disease Paternal History Items: Diabetes, Heart Disease, - - Father at the age of 56 of emphysema. Maternal History Items: - - Her mother lived to be 97 and of old age. Review of Systems Constitutional: Reports: Anorexia, Malaise, Weakness, Fatigue. Denies: Chills, Fever, Weight Change HEENT: Reports: Post Nasal Drip, Sinus Congestion, Sinus Drainage. Denies: Head Aches Cardiovascular: Reports: Chest Pain, Chest Tightness, Edema. Denies: Heaviness, Light Headedness, Orthopnea, Palpitations, Syncope Respiratory: Reports: Cough, Sputum production. Denies: Shortness of breath at rest Gastrointestinal: Reports: Abdominal Pain, Diarrhea, Nausea, Vomiting Genitourinary: Reports: Incontinence. Denies: Dysuria Musculoskeletal: Reports: Back Pain, Joint Pain. Denies: Joint Tenderness Skin: Reports: Skin Changes. Denies: Rash, Wounds Neurological: Denies: Numbness, Tingling, Focal weakness Psychiatric: Denies: Anxiety, Depression, Homicidal Ideations, Suicidal Ideations Hematologic/ Lymphatic: Reports: Easy Bruising, Easy Bleeding VTE Information - Inpt Only VTE Present on Admission: No VTE Mechan Device Prophylaxis: SCD's VTE Pharm Prophylaxis ordered?: No Patient Problems: Active and Suspected Problems NSTEMI (non-ST elevated myocardial infarction) (Acute) Cellulitis of left lower extremity (Acute) Nausea vomiting and diarrhea (Acute) Subjective: Patient seated upright in the bed, fatigued appearing, notes discomfort p rimarily LLE and posterior region. Objective: Physical Examination: General: awake, alert, oriented x 3 and cooperative, seated upright in the ED bed in no apparent distress, fatigued and ill appearing, uncomfortable. Skin: normal color, turgor, no icterus, cyanosis except LLE w/ notable edema pedal to knee, mediolateral enlarging bullae, yellow-serous appearance, erythema circumferentially, posterior coccyx with stage II decub. HEENT: AT/NC, EOMI, PERRLA, dry MM, no carotid bruits or JVD noted; however, thickened neck makes examination difficult. Lungs: CTA bilaterally, moderate effort, moderate decrease BL bases, no rales, ronchi or wheezing, occasional coughing. Heart: Regular rate and rhythm; no gallop, rub audible. Abdomen: soft, morbidly obese, NTTP, ND, normal BS, no HSM; however, habitus makes examination difficult. : Notable excoriation, beefy red. Extremities: no cyanosis, clubbing, see skin. Neurological: patient awake, alert, oriented x 3; cognitive function intact; pupils equally reactive to light and accomodation; cranial nerves II-XII grossly normal, moving all 4 extremities although LLE notably limited secondary to pain, strength accordingly severe globally decreased. Psychiatric: affect appears fatigued, ill, no acute evidence of depressive or anxiety feelings. - Physical Exam Vital Signs Temp Pulse Resp BP Pulse Ox 99.6 F H 85 18 167/82 H 96 12/14/18 18:06 12/14/18 19:00 12/14/18 19:00 12/14/18 19:00 12/14/18 19:00 Oxygen Delivery Method Room Air Weight: 270 lb Body Mass Index (BMI) 44.9 Finger Stick Blood Glucose 575 Laboratory Tests Past 24 Hrs 12/14/18 12/14/18 12/14/18 17:55 17:55 17:55 WBC 13.3 H RBC 4.39 Hgb 12.7 Hct 37.9 MCV 86.3 MCH 28.9 MCHC 33.5 RDW 14.8 H RDW Differential 46.3 H Plt Count 196 MPV 9.7 Immature Gran % (Auto) 0.300 Neut % (Auto) 85.2 H Lymph % (Auto) 7.1 L [place] % (Auto) 7.1 Eos % (Auto) 0.1 Baso % (Auto) 0.2 Absolute Neuts (auto) 11.4 H Absolute Lymphs (auto) 0.94 Total Counted Not Reportable PT 16.9 H INR 1.4 APTT 36.3 H Sodium 132 L Potassium 3.6 Chloride 98 Carbon Dioxide 25.0 Anion Gap 9 BUN 39 H Creatinine 1.63 H Estim Creat Clear Calc 24.36 Est GFR (MDRD) Af Amer 39 L Est GFR (MDRD) Non-Af 32 L BUN/Creatinine Ratio 23.9 H Glucose 217 H Lactic Acid Calcium 9.1 Total Bilirubin 0.90 AST 26 ALT 22 Alkaline Phosphatase 101 Troponin I 1.050 H* Total Protein 6.8 Albumin 2.6 L Globulin 4.2 Albumin/Globulin Ratio 0.6 L 12/14/18 17:55 WBC RBC Hgb Hct MCV MCH MCHC RDW RDW Differential Plt Count MPV Immature Gran % (Auto) Neut % (Auto) Lymph % (Auto) [place] % (Auto) Eos % (Auto) Baso % (Auto) Absolute Neuts (auto) Absolute Lymphs (auto) Total Counted PT INR APTT Sodium Potassium Chloride Carbon Dioxide Anion Gap BUN Creatinine Estim Creat Clear Calc Est GFR (MDRD) Af Amer Est GFR (MDRD) Non-Af BUN/Creatinine Ratio Glucose Lactic Acid 1.9 Calcium Total Bilirubin AST ALT Alkaline Phosphatase Troponin I Total Protein Albumin Globulin Albumin/Globulin Ratio Assessment/Plan All Active Problems NSTEMI (non-ST elevated myocardial infarction) (Acute) Cellulitis of left lower extremity (Acute) Nausea vomiting and diarrhea (Acute) Hyponatremia (Acute) Cellulitis (Acute) Blister of toe of right foot (Acute) Hyperosmolar nonketotic coma in diabetes (Acute) Atrial fibrillation with rapid ventricular response (Acute) Urinary tract infection due to Klebsiella species (Acute) Community acquired pneumonia (Acute) Severe sepsis (Acute) New onset atrial fibrillation (Acute) Pneumonia (Acute) Acute respiratory failure with hypoxia (Acute) Rhinovirus infection (Acute) Cystitis (Acute) Sepsis (Acute) UTI (urinary tract infection) (Acute) Nephrolithiasis (Acute) The patient is a 83 y/o F w/ PMHx: Diabetes mellitus type II w/ Neuropathy, Morbid Obesity, GERD, Hypothyroidism, Allergic Rhinitis, HTN, HLD, CAD s/p PCI, Chronic COPD and Asthma, CKD stage III (baseline Cr 1.6), PVD, PAF on oral anticoagulation who presents to the [facility] ED on 12/14/18 with history of recent onset GI illness with nausea, emesis and diarrhea with fatigue, malaise with similar ill contacts ongoing now for the past 2 to 3 days with diarrhea more severe on day of presentation with additionally onset over the past 2 days left lower extremity worsened edema, redness, pain with notable posterior bullae enlarging over the last 2 weeks in addition to mid and left sternal chest discomfort described as both sharp and pressure-like in sensation, rated 4-5 out of 10 with associated nausea, dyspnea and diaphoresis over the last 48 hours, increased with any exertional effort including having to use the restroom or with coughing, lasting only minutes and resolving prompting eventual presentation to the ED given all of her ongoing acute issues. (1) LLE Extremity Cellulitis: Will admit to PCU given #2, maintain on IV vanc and zosyn, plan repeat CBC in AM, continue affected extremity elevation above heart when seated and in bed, monitor erythema outline with VS checks. DVT US LLE pending. (2) Chest Pain w/ Acute NSTEMI: Work-up in the ED included T 99.8, heart rate 84, BP 143/76, respiratory rate 16, 96% on room air, CBC with WBC 13.3, hemoglobin 12.7, platelet 196 with left shift, coag studies with PT 16.9, INR 1.4, PTT 36.3, CMP with sodium 132, BUN/Cr 39/1.63, glucose 217, Trop 1.050, violeta in film of the foot and tib/fib w/ with evidence of edema, CXR w/ no acute findings, EKG w/ SR, prior evidence LA, without acute evidence of ischemia. Will maintain on a monitored bed, continue serial cardiac enzymes and EKGs. Obtain magnesium level upon admission. Holding eliquis. Continue medical management w/ asa, BB, statin w/ AM FLP. ECHO ordered. Cardiology consulted. ASA, NG, morphine. (3) N/V/D, Gastroenteritis, Suspect likely Viral (Recent similar ill contacts): Will continue hydration, will obtain c diff, stool cx with repeat AM CBC. Suspect viral gastroenteritis. Anti-emetics, pain regimen PRN. (4) Allergic Rhinitis with Post-nasal drip: Cough ongoing, allergies notable, mildly productive cough, CXR without acute findings, will maintain on ATC duoneb, PRN albuterol, flonase, singulair regimen. (5) Stage II Coccyx Decubitous Ulcer: Barrier cream, offloading, wound RN consultation. (6) CAD: Holding eliquis, maintain on asa, BB, statin. (7) PAF: SR on EKG upon presentation, holding eliquis, maintain on BB. (8) Hyperlipidemia: Continue home statin regimen. AM FLP. (9) Hypertension: Continue home regimen including clonidine, metoprolol, PRN hydralazine. (10) Hypothyroidism: Continue home synthroid regimen. (11) Chronic COPD and Asthma: Will maintain on oxygen with wean as tolerated to room air, continue ATC duonebs, PRN albuterol, HOB, IS parameters. (12) Diabetes mellitus type II with neuropathy: Hold oral home regimen, continue home insulin regimen, ADA diet, accu checks w/ ISS. (13) Morbid Obesity: Weight loss and lifestyle changes encouraged, nutrition consulted. (14) Chronic Kidney Disease Stage III: Admission BUN/Cr 39/1.63, baseline renal function 1.6, stable, repeat BMP in AM. (15) GERD: Continue home ranitidine. (16) DVT Prophylaxis: SCDs, holding eliquis. Code Visit Inpatient E&M: 19213 Init Hosp L3
[2018-12-14 20:59] LABS: Red Blood Cells-Urine 0 SEEN /hpf (0-5)
[2018-12-14 21:00] LABS: Color, Urine Yellow (Yellow); Glucose, Dipstick Normal (Normal); Ketone-Dipstick Negative (Negative); Leukocyte Esterase-Dipstick 500 /ul (Negative); Nitrite-Dipstick Positive (Negative); Occult Blood-Urine 150 /ul (Negative); Protein-Dipstick 100 mg/dl (Negative); Urine Bilirubin Dipstick Negative (Negative); Urine Clarity Cloudy (Clear); Urine Urobilinogen Normal (Normal)
[2018-12-14 21:06] LABS: White Blood Cells >100 SEEN /hpf (0-5)
[2018-12-14 21:07] LABS: Bacteria 2+ /hpf (None Seen); Squamous Epithelial Cells - UA 5-10 SEEN /hpf (5-10)
[2018-12-14 21:08] LABS: Mucous, Urine RARE /hpf (<or=2+)
--- NOTE | 2018-12-14 21:22 | NURSING ---
pt states she is not having chest pain at this moment. pt does have headache and would like Tylenol. awaiting for MD ti inform him; currently MD is in another pt room.
[2018-12-14] MEDS: Acetaminophen 325 MG Tablet 650 MG PO (21:33)
--- NOTE | 2018-12-14 21:44 | ECHOD_ITS ---
Reason For Study: CP Procedure This was a 2D Doppler, Color Flow transthoracic echocardiogram. Exam performed portable in patient room. Left Ventricle Normal size and thickness. The estimated ejection fraction is 65 %. No regional wall motion abnormalities noted. Right Ventricle Normal size and thickness. Normal systolic function. Atria Normal left atrium. Normal right atrium. Normal atrial septum. Mitral Valve Mild diffuse mitral valve thickening. Moderate mitral annular calcification extending into the posterior leaflet. Trivial mitral valve insufficiency. Tricuspid Valve Normal tricuspid valve. Unable to estimate RV systolic pressure due to inadequate jet, pulmonary artery pressure probably normal. Aortic Valve Trisinus/trileaflet aortic valve. Mild focal aortic valve thickening. There is no aortic stenosis. Pulmonic Valve Normal pulmonic valve. Great Vessels Normal aortic root. Normal arch. Normal inferior vena cava. Inferior vena cava collapse with sniff. Pericardium/Pleural No pericardial effusion. MMode/2D Measurements & Calculations LVIDd: 3.7 cm IVSd: 1.1 cm LA dimension: 3.6 cm LVIDs: 2.5 cm LVPWd: 0.98 cm RVDd: 3.3 cm FS: 33.1 % LAV(MOD-bp): 51.3 ml LVAd ap4: 23.8 cm2 SV(MOD-sp4): 38.0 ml LAV(MOD-bp) Indexed: 22.1 ml/m2 EDV(MOD-sp4): 62.0 ml LAV(MOD-sp2): 52.4 ml EDV(sp4-el): 64.1 ml LAV(MOD-sp4): 50.2 ml LVAs ap4: 12.8 cm2 ESV(MOD-sp4): 24.0 ml ESV(sp4-el): 23.6 ml EF(MOD-sp4): 61.3 % EF(sp4-el): 63.2 % SV(sp4-el): 40.5 ml LA A4 area: 18.5 cm2 RA A4 area: 15.1 cm2 Time Measurements MV dec time: 0.17 sec Doppler Measurements & Calculations MV E max cory: 166.2 cm/sec Lat Peak E' Cory: 10.3 cm/sec Med Peak E' Cory: 8.3 cm/sec MV A max cory: 81.4 cm/sec E/E' lat: 16.1 E/E' med: 20.1 MV E/A: 2.0 MV V2 max: 201.3 cm/sec Ao V2 max: 147.7 cm/sec LV V1 max: 102.6 cm/sec MV max P.2 mmHg Ao max P.7 mmHg LV V1 max P.2 mmHg MV V2 mean: 90.2 cm/sec MV mean P.4 mmHg MV V2 VTI: 53.6 cm PA V2 max: 78.0 cm/sec Interpretation Summary The estimated ejection fraction is 65 %. Trivial mitral valve insufficiency. Mild focal aortic valve thickening. Compared to echo report dated 12/13/2016, no appreciabl echanges noted. The study was technically difficult. Ordering Physician: Eugenia Briceno Performed By: Sergey Garcia RCS
--- NOTE | 2018-12-14 21:44 | VDLE_ITS ---
Reason For Study: Pain, LLE cellulitis Procedure LEFT Exam performed portable in patient room. GSV is normal. Limited views were obtained in the calf due CFV is compressible, spontaneous, phasic, to bandages. competent, and demonstrates normal A preliminary report was called and/or faxed augmentation. to U Nurse. FV is compressible, spontaneous, phasic, competent and demonstrates normal augmentation. POP V is compressible, spontaneous, phasic, competent and demonstrates normal augmentation. T/P Trunk is compressible. PTV is compressible. LT PerV is compressible. Interpretation Summary There is no evidence of left lower extremity deep vein thrombosis. Left greater saphenous vein appears patent and compressible segmentally. Limited exam secondary to bandages Ordering Physician: Eugenia Briceno Performed By: Anna Chen RVT
--- NOTE | 2018-12-14 21:44 | EKG12_ITS ---
Test Reason : CP ADMIT Blood Pressure : / mmHG Vent. Rate : 083 BPM Atrial Rate : 083 BPM P-R Int : 210 ms QRS Dur : 090 ms QT Int : 390 ms P-R-T Axes : 055 -01 093 degrees QTc Int : 458 ms Sinus rhythm with 1st degree A-V block with Premature supraventricular complexes and with occasional Premature ventricular complexes Anteroseptal infarct , age undetermined Abnormal ECG When compared with ECG of 14-DEC-2018 17:36, MANUAL COMPARISON REQUIRED, DATA IS UNCONFIRMED Confirmed by VASQUEZ ANDERSON, CHON ([id number]), film or videotape editor KERRI DICKINSON ([id number]) on 12/15/2018 8:09:11 AM Referred By: DR ALONSO Confirmed By:CHON OVALLE MD
[2018-12-14 22:34] LABS: Magnesium 1.9 mg/dL (1.6-2.6)
[2018-12-14] MEDS: 0.9% Normal Saline 1,000 ML 100 ML IV (22:59)
[2018-12-14] MEDS: Insulin Lispro 100 UNIT/ML INSULN.PEN SQ (23:17)
[2018-12-14] MEDS: Famotidine 20 MG Tablet PO (23:18)
[2018-12-14] MEDS: Metoprolol Tartrate 25 MG Tablet PO (23:18)
[2018-12-14] MEDS: cloNIDine HCl 0.1 MG Tablet PO (23:18)
[2018-12-14] MEDS: Nitroglycerin Oint 1 INCH PACKET 0.5 INCH TRANSDERM. (23:18)
[2018-12-14] MEDS: Montelukast 10 MG Tablet PO (23:18)
[2018-12-14] MEDS: Nystatin Powder 15gm Bottle 1 APPLIC TOPICAL (23:19)
[2018-12-14] MEDS: Menthol/Lanolin/Calamine/Znox 113 GM Tube 1 APPLIC TOPICAL (23:20)
--- NOTE | 2018-12-14 23:20 | PHA.PHARE_ITS ---
Consult Pharmacy has been consulted to manage selected antiobiotic: Vancomycin Type of Consult: New start Suspected Infection: Skin/Soft tissue Prior Doses of Antibiotics Received/Current Regimen: Medications Piperacillin Sod/Tazobactam (Sod 3.375 gm/ Sodium Chloride) 50 mls @ 12.5 mls/hr IV Q8 [facility] Last Admin: 12/14/18 22:59 Dose: 12.5 mls/hr Labs: Sodium 132 mmol/L (136-145) L 12/14/18 17:55 Potassium 3.6 mmol/L (3.5-5.1) 12/14/18 17:55 Chloride 98 mmol/L (98-107) 12/14/18 17:55 Carbon Dioxide 25.0 mmol/L (21.0-32.0) 12/14/18 17:55 Anion Gap 9 (5-15) 12/14/18 17:55 BUN 39 mg/dL (7-18) H 12/14/18 17:55 Creatinine 1.63 mg/dL (0.55-1.02) H 12/14/18 17:55 Est GFR (MDRD) Af Amer 39 mL/min (>60) L 12/14/18 17:55 Est GFR (MDRD) Non-Af 32 mL/min (>60) L 12/14/18 17:55 BUN/Creatinine Ratio 23.9 RATIO (10-20) H 12/14/18 17:55 Glucose 217 mg/dL (74-106) H 12/14/18 17:55 Weight used for dosin.7 kg Estimated Creatinine Clearance: 37 Goal Trough: 10-15 mcg/mL Pharmacy Plan for Drug Dosing: Pharmacy Service will continue to monitor and adjust dosing as required. Medications Vancomycin HCl 2,000 mg/ (Sodium Chloride) 540 mls @ 250 mls/hr IV X1 ONE Stop: 12/15/18 05:09 Vancomycin HCl 1,250 mg/ (Sodium Chloride) 275 mls @ 167 mls/hr IV Q24H [facility] Follow-Up Labs: Trough Vancomycin Labs to be done on [date and time ordered]: 12/17 @ 8012
[2018-12-14 23:41] LABS: Bedside Glucose 206 mg/dL (70-110)
[2018-12-15] VITALS (18 sets, daily range): BP systolic 127–145; BP diastolic 55–68; PULSE 66–102; RESP 14–17; TEMP 36.6–37.8; O2SAT 95–97
[2018-12-15] MEDS: Acetaminophen 325 MG Tablet 650 MG PO ×3 (03:50→18:16)
[2018-12-15] MEDS: Nitroglycerin Oint 1 INCH PACKET 0.5 INCH TRANSDERM. ×3 (05:08→18:11)
[2018-12-15] MEDS: Levothyroxine 137 MCG Tablet PO (05:08)
[2018-12-15] MEDS: Nystatin Powder 15gm Bottle 1 APPLIC TOPICAL ×3 (05:09→21:33)
[2018-12-15] MEDS: LORazepam 0.5 MG Tablet PO (05:09)
--- NOTE | 2018-12-15 05:55 | EKG12_ITS ---
Test Reason : AM EKG Blood Pressure : / mmHG Vent. Rate : 080 BPM Atrial Rate : 357 BPM P-R Int : 000 ms QRS Dur : 092 ms QT Int : 386 ms P-R-T Axes : 000 002 103 degrees QTc Int : 445 ms Atrial fibrillation Anteroseptal infarct , age undetermined Abnormal ECG When compared with ECG of 14-DEC-2018 23:06, MANUAL COMPARISON REQUIRED, DATA IS UNCONFIRMED Confirmed by VASQUEZ ANDERSON, CHON ([id number]), supervising film or videotape editor KERRI DICKINSON ([id number]) on 12/15/2018 8:08:01 AM Referred By: DR ALNOSO Confirmed By:CHON OVALLE MD
[2018-12-15 06:28] LABS: International Normalized Ratio 1.3; Partial Thromboplast Time 34.6 Seconds (24.1-36.2); Prothrombin Time (Protime)PT. 16.4 SECONDS (11.7-14.9)
[2018-12-15 06:30] LABS: Hematocrit 35.1 % (37-47); Hemoglobin 11.6 g/dl (12.0-15.0); Mean Corpuscular Hgb 28.6 pg (27.0-32.0); Mean Corpuscular Volume 86.5 fL (81-99); Mean Platelet Vol. 9.8 fl (6.2-12.0); Platelet Count 179 K/mm3 (150-450); RBC Distribution Width CV 14.7 % (11.6-14.6); RBC Distribution Width SD 45.4 fl (35.1-43.9); Red Blood Count 4.06 M/mm3 (4.2-5.4); White Blood Count 12.7 K/mm3 (4.4-11.0)
[2018-12-15 06:31] LABS: Scan Indicated on CBC? Y/N NO
[2018-12-15 06:43] LABS: ALB/GLOB Ratio 0.5 RATIO (0.9-2.4); AST(SGOT) 23 U/L (15-37); Alanine Aminotransfer ALT/SGPT 21 U/L (13-56); Albumin, Serum 2.1 g/dL (3.2-5.0); Alkaline Phosphatase 90 U/L (45-117); Anion Gap 11 (5-15); BUN 36 mg/dL (7-18); Calcium,Total 8.5 mg/dL (8.5-10.1); Chloride 102 mmol/L (98-107); Cholesterol 67 mg/dL (200); EST Glomerular Filtration Rate 35 mL/min (>60); Est Glom Filt Rate - Afr Amer 43 mL/min (>60); Estimated Creatinine Clearance 26.47 ml/min; Glucose 223 mg/dL (74-106); High Density Lipoprotein 32 mg/dL; Potassium 3.4 mmol/L (3.5-5.1); Protein, Total 6.1 g/dL (6.4-8.2); Sodium Level 135 mmol/L (136-145); Triglycerides 81 mg/dL; Very Low Density Lipoprotein 16 mg/dL (5-40)
[2018-12-15 06:46] LABS: Bedside Glucose 226 mg/dL (70-110)
[2018-12-15] MEDS: Ipratropium/Albuterol Sulfate 3 ML AMPUL.NEB INHALATION ×3 (07:15→19:30)
[2018-12-15] MEDS: Metoprolol Tartrate 25 MG Tablet PO ×2 (09:08→21:28)
[2018-12-15] MEDS: Glucerna Shake 120 ML LIQUID PO ×3 (09:08→17:46)
[2018-12-15] MEDS: cloNIDine HCl 0.1 MG Tablet PO ×2 (09:08→21:28)
[2018-12-15] MEDS: Famotidine 20 MG Tablet PO ×2 (09:09→21:29)
[2018-12-15] MEDS: Aspirin E.C. 81 MG Tablet PO (09:09)
[2018-12-15] MEDS: Fluticasone 0.05% 1 SPRAY NASAL.SRY NASAL (09:10)
[2018-12-15] MEDS: Insulin NPH Human 100 UNITS/ML PEN 35 UNITS SC ×2 (09:11→17:49)
[2018-12-15] MEDS: Insulin Lispro 100 UNIT/ML INSULN.PEN SQ ×4 (09:12→21:58)
[2018-12-15] MEDS: Insulin Lispro 100 UNIT/ML INSULN.PEN 13 UNIT SC ×3 (09:13→17:46)
[2018-12-15] MEDS: Menthol/Lanolin/Calamine/Znox 113 GM Tube 1 APPLIC TOPICAL ×4 (09:16→21:33)
--- NOTE | 2018-12-15 10:50 | CASEMGMT ---
RN SHARON HOSPITALIST CM to room to meet with patient for initial transition planning/care coordination assessment. KRYSTIAN HERRERA introduced self and role at [facility]. Pt voices understanding and consents to assessment at this time. Pt resting in bed in no distress at this time. Pt is A/O at this time and answers all questions appropriately. Care providers, pharmacy, and demographics verified/updated at this time. PCP: Margarita Amaya Specialists: [employer] in [place]. Does not remember their names. [facility]: Yes Living Will/HPOA: Does not have a LW, but does have HCPOA, who is her daughter Cristiana Gorman. LNOK: Has 6 adult children. Cristiana/HCPJENSEN, Loi (who she lives with in [place]), Pamella, Delia, Patricio, and Monica. Living Arrangements: Pt states she lives in [place] with her son and GREGORY but has been staying with her daughter, Loretta, in [place], [place], for the past 7 weeks. She states the plans were for her to return to [place] this past Tuesday but that she was feeling too ill to go. Pt states she was able to do own bathing/dressing, but that her daughter prepared the meals. Transportation: Pt states she has not driven for about 3 yrs. Her son and GREGORY provide transportation for her when she is in [place], and her daughters, Cristiana and Pamella, provide transportation for her while in [place]. DME: has the following DME at her daughter, Cristiana's home in [place]: Walker, toilet riser. She states the shower area is too small at Cristiana's home, so she has just been sponge bathing. Pt states no need for further DME at this time. States her son's home where she usually lives has a shower chair and raised toilet seat. HHC/SNF: Has been on TCU in the past. No history of HHC. Discussed discharge plans with her once she is discharged from [facility]. Pt states she does not want to go to a SNF at this time. Pt states she wishes to return to Loretta's home in [place] until she is well enough to travel to [place]. She states Loretta would be able to assist her with care/dressing changes, but that she works full-time and that she would not be able to stay with her all of the time. She states she has another daughter, Pamella, who lives behind Loretta's home that is retired and would be able to stay with her to help to take care of her, including doing dressing changes, when Loretta was not home/available. Discussed HHC with pt for halfway: wound care/teaching, etc, but pt states she does not want HHC at this time either, stating, my daughter's can do all of that. CM to follow for discharge planning/needs. PT/OT evals pending. Pt voices no further concerns/needs at this time. Advised pt to ask for CM if any further questions/concerns/needs arise. Voices understanding. PLAN: Discharge to daughterCristiana's home, in [place]. Pt stated may consider going to TCU if needs to, depending on her needs/strength/ability when it is time for discharge. Pt instructed to left CM know if she decides she would like to go to TCU, so pre-cert can be started. Pt voices understanding. Shahla MURPHYN RN CM
--- NOTE | 2018-12-15 11:53 | NURSING ---
Wound photo: Blister; Before
--- NOTE | 2018-12-15 11:54 | NURSING ---
Wound Photo: Blister; After
--- NOTE | 2018-12-15 11:55 | NURSING ---
Wound Photo: NINI
--- NOTE | 2018-12-15 12:24 | PN_ITS ---
<Laura Moss - Last Filed: 12/15/18 12:24> Patient Problems: Active and Suspected Problems NSTEMI (non-ST elevated myocardial infarction) (Acute) Cellulitis of left lower extremity (Acute) Nausea vomiting and diarrhea (Acute) Subjective: Patient seen and examined. Reports she had an episode of chest pressure ov ernight which lasted a few minutes. Denies further diarrhea, nausea, vomiting. Complains of generalized URI symptoms including runny nose, sneezing, cough. Denies fever, chills. - Physical Exam General: Alert, Oriented x3, Cooperative HEENT: Atraumatic, PERRLA, EOMI, Normocephalic Neck: Supple, No JVD, Negative Carotid Bruits Lungs: Clear to auscultation, Diminished Cardiovascular: Regular rate, Regular Rhythm, Normal S1, Normal S2, No murmurs Abdomen: Bowel Sounds Present, Soft, Non Tender, Non-Distended, Obese Extremities: No clubbing, No cyanosis, Capillary Refill Less than 3 Seconds, Edema - BLLE, left >right. Skin: - - Left lower extremity with erythema, edema and medial calf bullae. Chronic stage II decub coccyx ulcer. Musculoskeletal: No Tenderness to Palpation of Joints or Extremities Neurological: Cranial nerves II-XII grossly intact, Neuro grossly intact Psych/Mental Status: Normal Affect, Appropriate Vital Signs Temp Pulse Resp BP Pulse Ox 98.3 F 93 14 127/64 H 95 12/15/18 08:44 12/15/18 09:08 12/15/18 08:44 12/15/18 09:08 12/15/18 08:44 Oxygen Delivery Method Room Air Weight: 290 lb 5.581 oz Body Mass Index (BMI) 48.3 Finger Stick Blood Glucose 575 Intake and Output for Last 24 Hours 12/13/18 12/14/18 12/15/18 23:59 23:59 23:59 Intake Total 67.7 / 67.7 814 / 814 Output Total 25 / 25 75 / 75 Balance 42.7 / 42.7 739 / 739 Laboratory Tests Past 24 Hrs 12/14/18 12/14/18 12/14/18 17:55 17:55 17:55 WBC 13.3 H RBC 4.39 Hgb 12.7 Hct 37.9 MCV 86.3 MCH 28.9 MCHC 33.5 RDW 14.8 H RDW Differential 46.3 H Plt Count 196 MPV 9.7 Immature Gran % (Auto) 0.300 Neut % (Auto) 85.2 H Lymph % (Auto) 7.1 L Darke % (Auto) 7.1 Eos % (Auto) 0.1 Baso % (Auto) 0.2 Absolute Neuts (auto) 11.4 H Absolute Lymphs (auto) 0.94 Total Counted Not Reportable PT 16.9 H INR 1.4 APTT 36.3 H Sodium 132 L Potassium 3.6 Chloride 98 Carbon Dioxide 25.0 Anion Gap 9 BUN 39 H Creatinine 1.63 H Estim Creat Clear Calc 24.36 Est GFR (MDRD) Af Amer 39 L Est GFR (MDRD) Non-Af 32 L BUN/Creatinine Ratio 23.9 H Glucose 217 H Lactic Acid Calcium 9.1 Magnesium Total Bilirubin 0.90 AST 26 ALT 22 Alkaline Phosphatase 101 Troponin I 1.050 H* Total Protein 6.8 Albumin 2.6 L Globulin 4.2 Albumin/Globulin Ratio 0.6 L Triglycerides Cholesterol LDL Cholesterol VLDL Cholesterol HDL Cholesterol Urine Color Urine Clarity Urine pH Ur Specific [place] Urine Protein Urine Glucose (UA) Urine Ketones Urine Occult Blood Urine Nitrite Urine Bilirubin Urine Urobilinogen Ur Leukocyte Esterase Urine RBC Urine WBC Ur Squamous Epith Cells Urine Bacteria Urine Mucus 12/14/18 12/14/18 12/14/18 17:55 20:50 21:30 WBC RBC Hgb Hct MCV MCH MCHC RDW RDW Differential Plt Count MPV Immature Gran % (Auto) Neut % (Auto) Lymph % (Auto) Darke % (Auto) Eos % (Auto) Baso % (Auto) Absolute Neuts (auto) Absolute Lymphs (auto) Total Counted PT INR APTT Sodium Potassium Chloride Carbon Dioxide Anion Gap BUN Creatinine Estim Creat Clear Calc Est GFR (MDRD) Af Amer Est GFR (MDRD) Non-Af BUN/Creatinine Ratio Glucose Lactic Acid 1.9 Calcium Magnesium Total Bilirubin AST ALT Alkaline Phosphatase Troponin I 0.876 H* Total Protein Albumin Globulin Albumin/Globulin Ratio Triglycerides Cholesterol LDL Cholesterol VLDL Cholesterol HDL Cholesterol Urine Color Yellow Urine Clarity Cloudy Urine pH 7.0 Ur Specific [place] 1.010 Urine Protein 100 H Urine Glucose (UA) Normal Urine Ketones Negative Urine Occult Blood 150 H Urine Nitrite Positive H Urine Bilirubin Negative Urine Urobilinogen Normal Ur Leukocyte Esterase 500 H Urine RBC 0 SEEN Urine WBC >100 SEEN Ur Squamous Epith Cells 5-10 SEEN Urine Bacteria 2+ Urine Mucus RARE 12/14/18 12/15/18 12/15/18 21:30 01:00 06:00 WBC 12.7 H RBC 4.06 L Hgb 11.6 L Hct 35.1 L MCV 86.5 MCH 28.6 MCHC 33.0 RDW 14.7 H RDW Differential 45.4 H Plt Count 179 MPV 9.8 Immature Gran % (Auto) Neut % (Auto) Lymph % (Auto) Darke % (Auto) Eos % (Auto) Baso % (Auto) Absolute Neuts (auto) Absolute Lymphs (auto) Total Counted PT INR APTT Sodium Potassium Chloride Carbon Dioxide Anion Gap BUN Creatinine Estim Creat Clear Calc Est GFR (MDRD) Af Amer Est GFR (MDRD) Non-Af BUN/Creatinine Ratio Glucose Lactic Acid Calcium Magnesium 1.9 Total Bilirubin AST ALT Alkaline Phosphatase Troponin I 0.744 H* Total Protein Albumin Globulin Albumin/Globulin Ratio Triglycerides Cholesterol LDL Cholesterol VLDL Cholesterol HDL Cholesterol Urine Color Urine Clarity Urine pH Ur Specific [place] Urine Protein Urine Glucose (UA) Urine Ketones Urine Occult Blood Urine Nitrite Urine Bilirubin Urine Urobilinogen Ur Leukocyte Esterase Urine RBC Urine WBC Ur Squamous Epith Cells Urine Bacteria Urine Mucus 12/15/18 12/15/18 06:00 06:00 WBC RBC Hgb Hct MCV MCH MCHC RDW RDW Differential Plt Count MPV Immature Gran % (Auto) Neut % (Auto) Lymph % (Auto) Darke % (Auto) Eos % (Auto) Baso % (Auto) Absolute Neuts (auto) Absolute Lymphs (auto) Total Counted PT 16.4 H INR 1.3 APTT 34.6 Sodium 135 L Potassium 3.4 L Chloride 102 Carbon Dioxide 22.0 Anion Gap 11 BUN 36 H Creatinine 1.50 H Estim Creat Clear Calc 26.47 Est GFR (MDRD) Af Amer 43 L Est GFR (MDRD) Non-Af 35 L BUN/Creatinine Ratio 24.0 H Glucose 223 H Lactic Acid Calcium 8.5 Magnesium Total Bilirubin 1.00 AST 23 ALT 21 Alkaline Phosphatase 90 Troponin I Total Protein 6.1 L Albumin 2.1 L Globulin 4.0 Albumin/Globulin Ratio 0.5 L Triglycerides 81 Cholesterol 67 LDL Cholesterol 19 VLDL Cholesterol 16 HDL Cholesterol 32 L Urine Color Urine Clarity Urine pH Ur Specific [place] Urine Protein Urine Glucose (UA) Urine Ketones Urine Occult Blood Urine Nitrite Urine Bilirubin Urine Urobilinogen Ur Leukocyte Esterase Urine RBC Urine WBC Ur Squamous Epith Cells Urine Bacteria Urine Mucus POC Glucose 12/15/18 12/14/18 06:42 23:17 POC Glucose 226 H 206 H Medical Necessity - Tobacco Use Smoking Status: Never smoker Tobacco Use: Non-smoker Assessment/Plan All Active Problems NSTEMI (non-ST elevated myocardial infarction) (Acute) Cellulitis of left lower extremity (Acute) Nausea vomiting and diarrhea (Acute) Hyponatremia (Acute) Cellulitis (Acute) Blister of toe of right foot (Acute) Hyperosmolar nonketotic coma in diabetes (Acute) Atrial fibrillation with rapid ventricular response (Acute) Urinary tract infection due to Klebsiella species (Acute) Community acquired pneumonia (Acute) Severe sepsis (Acute) New onset atrial fibrillation (Acute) Pneumonia (Acute) Acute respiratory failure with hypoxia (Acute) Rhinovirus infection (Acute) Cystitis (Acute) Sepsis (Acute) UTI (urinary tract infection) (Acute) Nephrolithiasis (Acute) 1. Acute NSTEMI-cardiology following. Plan for cardiac catheterization tentatively 12/18/2018. Continue aspirin, beta-susie, statin. Echocardiogram pending. 2. Left lower extremity cellulitis with large medial calf bullae with appearance of yellow serous fluid-left lower extremity duplex ultrasound negative for DVT. Continue IV vancomycin and IV Zosyn. Wound RN consulted. Bullae drained. Apply Silvadene followed by ABD, Kerlix and Jesus wrap. Change daily. 3. Acute UTI-on IV vancomycin and IV Zosyn due to left lower extremity cellulitis. Urine culture pending. 4. Allergic rhinitis versus viral URI-patient reports she recently had the flu. She also reports family with URI symptoms as well. Check respiratory panel. Chest x-ray without acute process. Continue Singulair, Flonase regimen. 5. Suspected viral gastroenteritis-resolved. Patient reports family with similar symptoms prior to admission. Denies further nausea, vomiting, diarrhea. 6. Stage II coccyx decubitus ulcer, present on admission-frequent position changes, wound RN consulted. 7. CAD-holding Eliquis given plans for cardiac catheterization. Continue aspirin, statin, beta-susie. 8. Paroxysmal atrial fibrillation-continue beta-susie regimen. Eliquis on hold. 9. Hyperlipidemia-continue statin. 10. Hypertension-stable, continue clonidine, metoprolol regimen. 11. Hypothyroidism-continue Synthroid regimen. 12. Chronic COPD and asthma-no acute exacerbation. As needed albuterol aerosol. 13. 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 Continue home insulin regimen, Accu-Cheks ACHS with sliding scale insulin. 14. Chronic kidney disease stage III-stable, trend BMP. 15. GERD-continue home ranitidine regimen. DVT prophylaxis-SCDs This patient was seen by SONAM Silva under the supervision of Dr. Bean. <Rocky Bean - Last Filed: 12/15/18 13:22> - Physical Exam Vital Signs Temp Pulse Resp BP Pulse Ox 97.8 F 87 15 139/55 H 97 12/15/18 12:30 12/15/18 12:32 12/15/18 12:30 12/15/18 12:32 12/15/18 12:30 Oxygen Delivery Method Room Air Weight: 131.7 kg Body Mass Index (BMI) 48.3 Finger Stick Blood Glucose 575 Intake and Output for Last 24 Hours 12/13/18 12/14/18 12/15/18 23:59 23:59 23:59 Intake Total 67.7 / 67.7 1194 / 1194 Output Total 25 / 25 450 / 450 Balance 42.7 / 42.7 744 / 744 Laboratory Tests Past 24 Hrs 12/14/18 12/14/18 12/14/18 17:55 17:55 17:55 WBC 13.3 H RBC 4.39 Hgb 12.7 Hct 37.9 MCV 86.3 MCH 28.9 MCHC 33.5 RDW 14.8 H RDW Differential 46.3 H Plt Count 196 MPV 9.7 Immature Gran % (Auto) 0.300 Neut % (Auto) 85.2 H Lymph % (Auto) 7.1 L Darke % (Auto) 7.1 Eos % (Auto) 0.1 Baso % (Auto) 0.2 Absolute Neuts (auto) 11.4 H Absolute Lymphs (auto) 0.94 Total Counted Not Reportable PT 16.9 H INR 1.4 APTT 36.3 H Sodium 132 L Potassium 3.6 Chloride 98 Carbon Dioxide 25.0 Anion Gap 9 BUN 39 H Creatinine 1.63 H Estim Creat Clear Calc 24.36 Est GFR (MDRD) Af Amer 39 L Est GFR (MDRD) Non-Af 32 L BUN/Creatinine Ratio 23.9 H Glucose 217 H Lactic Acid Calcium 9.1 Magnesium Total Bilirubin 0.90 AST 26 ALT 22 Alkaline Phosphatase 101 Troponin I 1.050 H* Total Protein 6.8 Albumin 2.6 L Globulin 4.2 Albumin/Globulin Ratio 0.6 L Triglycerides Cholesterol LDL Cholesterol VLDL Cholesterol HDL Cholesterol Urine Color Urine Clarity Urine pH Ur Specific [place] Urine Protein Urine Glucose (UA) Urine Ketones Urine Occult Blood Urine Nitrite Urine Bilirubin Urine Urobilinogen Ur Leukocyte Esterase Urine RBC Urine WBC Ur Squamous Epith Cells Urine Bacteria Urine Mucus 12/14/18 12/14/18 12/14/18 17:55 20:50 21:30 WBC RBC Hgb Hct MCV MCH MCHC RDW RDW Differential Plt Count MPV Immature Gran % (Auto) Neut % (Auto) Lymph % (Auto) Darke % (Auto) Eos % (Auto) Baso % (Auto) Absolute Neuts (auto) Absolute Lymphs (auto) Total Counted PT INR APTT Sodium Potassium Chloride Carbon Dioxide Anion Gap BUN Creatinine Estim Creat Clear Calc Est GFR (MDRD) Af Amer Est GFR (MDRD) Non-Af BUN/Creatinine Ratio Glucose Lactic Acid 1.9 Calcium Magnesium Total Bilirubin AST ALT Alkaline Phosphatase Troponin I 0.876 H* Total Protein Albumin Globulin Albumin/Globulin Ratio Triglycerides Cholesterol LDL Cholesterol VLDL Cholesterol HDL Cholesterol Urine Color Yellow Urine Clarity Cloudy Urine pH 7.0 Ur Specific [place] 1.010 Urine Protein 100 H Urine Glucose (UA) Normal Urine Ketones Negative Urine Occult Blood 150 H Urine Nitrite Positive H Urine Bilirubin Negative Urine Urobilinogen Normal Ur Leukocyte Esterase 500 H Urine RBC 0 SEEN Urine WBC >100 SEEN Ur Squamous Epith Cells 5-10 SEEN Urine Bacteria 2+ Urine Mucus RARE 12/14/18 12/15/18 12/15/18 21:30 01:00 06:00 WBC 12.7 H RBC 4.06 L Hgb 11.6 L Hct 35.1 L MCV 86.5 MCH 28.6 MCHC 33.0 RDW 14.7 H RDW Differential 45.4 H Plt Count 179 MPV 9.8 Immature Gran % (Auto) Neut % (Auto) Lymph % (Auto) Darke % (Auto) Eos % (Auto) Baso % (Auto) Absolute Neuts (auto) Absolute Lymphs (auto) Total Counted PT INR APTT Sodium Potassium Chloride Carbon Dioxide Anion Gap BUN Creatinine Estim Creat Clear Calc Est GFR (MDRD) Af Amer Est GFR (MDRD) Non-Af BUN/Creatinine Ratio Glucose Lactic Acid Calcium Magnesium 1.9 Total Bilirubin AST ALT Alkaline Phosphatase Troponin I 0.744 H* Total Protein Albumin Globulin Albumin/Globulin Ratio Triglycerides Cholesterol LDL Cholesterol VLDL Cholesterol HDL Cholesterol Urine Color Urine Clarity Urine pH Ur Specific [place] Urine Protein Urine Glucose (UA) Urine Ketones Urine Occult Blood Urine Nitrite Urine Bilirubin Urine Urobilinogen Ur Leukocyte Esterase Urine RBC Urine WBC Ur Squamous Epith Cells Urine Bacteria Urine Mucus 12/15/18 12/15/18 06:00 06:00 WBC RBC Hgb Hct MCV MCH MCHC RDW RDW Differential Plt Count MPV Immature Gran % (Auto) Neut % (Auto) Lymph % (Auto) Darke % (Auto) Eos % (Auto) Baso % (Auto) Absolute Neuts (auto) Absolute Lymphs (auto) Total Counted PT 16.4 H INR 1.3 APTT 34.6 Sodium 135 L Potassium 3.4 L Chloride 102 Carbon Dioxide 22.0 Anion Gap 11 BUN 36 H Creatinine 1.50 H Estim Creat Clear Calc 26.47 Est GFR (MDRD) Af Amer 43 L Est GFR (MDRD) Non-Af 35 L BUN/Creatinine Ratio 24.0 H Glucose 223 H Lactic Acid Calcium 8.5 Magnesium Total Bilirubin 1.00 AST 23 ALT 21 Alkaline Phosphatase 90 Troponin I Total Protein 6.1 L Albumin 2.1 L Globulin 4.0 Albumin/Globulin Ratio 0.5 L Triglycerides 81 Cholesterol 67 LDL Cholesterol 19 VLDL Cholesterol 16 HDL Cholesterol 32 L Urine Color Urine Clarity Urine pH Ur Specific [place] Urine Protein Urine Glucose (UA) Urine Ketones Urine Occult Blood Urine Nitrite Urine Bilirubin Urine Urobilinogen Ur Leukocyte Esterase Urine RBC Urine WBC Ur Squamous Epith Cells Urine Bacteria Urine Mucus POC Glucose 12/15/18 12/15/18 12/14/18 12:16 06:42 23:17 POC Glucose 267 H 226 H 206 H Assessment/Plan This patient was seen in conjunction with SONAM Silva . I have independently interviewed and examined the patient and reviewed pertinent historical, laboratory, and other data. Please refer to SONAM Silva note for details of this patient's presentation, findings, and recommendations. I have reviewed Laura Moss NP-C note and concur with documented findings. In brief, patient is a 83-year-old lady with multiple comorbidities including CAD with previous angioplasty, diabetes mellitus type 2 hypertension who presented with erythema and warmth involving the left lower extremity in addition to chest pain. An assessment of acute left lower extremity cellulitis was made. Patient was also found to have elevated troponin consistent with non- STEMI admitted to monitored bed for further management Physical Examination: GENERAL: cooperative HEENT: Atraumatic; EYES; Anicteric, Normal Conjunctiva NECK; supple, normal thyroid, RESPIRATORY: Diminished to auscultation CARDIOVASCULAR: Regular S1 S2, GI: soft, non-tender, normoactive bowel sounds, : No Renal angle tenderness; NEURO: Awake; no lateralizing signs. SKIN: Erythema and warmth involving the left lower extremity PSYCH; Normal affect Assessment: 1. Acute non-STEMI 2. Left lower extremity cellulitis 3. Acute cystitis 4. Chronic kidney disease stage III 5. GERD 6. Hypertension 7. Diabetes mellitus type 2 8. Paroxysmal atrial fibrillation 9. Coronary artery disease with previous angioplasty 10. Allergic rhinitis 11. Dyslipidemia 12. Morbid obesity with BMI of 48.3 13. COPD currently not in exacerbation 14. Stage II coccyx decubitus ulcer, present on admission Recommendations: 1. I have discussed the results of my overview and impressions with the patient 2. Options for management were reviewed Code Visit Inpatient E&M: 61130 [facility] L[facility]
[2018-12-15 12:45] LABS: Bedside Glucose 267 mg/dL (70-110)
--- NOTE | 2018-12-15 13:05 | PCM.CONS.C ---
Problem List (1) NSTEMI (non-ST elevated myocardial infarction) Status: Acute (2) Cellulitis of left lower extremity Status: Acute (3) CRI (chronic renal insufficiency) Status: Chronic (4) H/O coronary angioplasty Status: Chronic (5) Hyperlipidemia Status: Chronic Qualifiers: Hyperlipidemia type: unspecified Qualified Code(s): E78.5 - Hyperlipidemia, unspecified (6) Hypertension Status: Chronic Qualifiers: Hypertension type: essential hypertension Qualified Code(s): I10 - Essential (primary) hypertension (7) Atrial fibrillation with rapid ventricular response Status: Acute Reason for Consult Date of Consultation: 12/15/18 Reason for Consultation: Atrial fibrillation, coronary artery disease status post stenting, hypertension, hypercholesterolemia, diabetes, positive troponin History of Present Illness: The patient is a 83 year old F, who currently resides in [place], and is just visiting her family up here, with a history of morbid obesity, diabetes, hypertension, hypercholesterolemia, coronary disease status post stenting several years ago down in [place] although the exact date she does not remember. She also is a history of chronic atrial fibrillation is on chronic Eliquis as well. Several weeks ago the patient began noticing worsening lower extremity edema and more recently over the last week or so developed redness and pain in her left lower extremity specifically. In addition she has complained of GI upset, abdominal pain, fevers, nausea, vomiting, and diarrhea. When her lower extremity pain became too bad, she came to the emergency room last evening where she was found to be in atrial fibrillation with controlled ventricular response, a troponin of 1.0, and an EKG which showed atrial fibrillation with old anteroseptal wall myocardial infarction and a PVC. She did have an EKG in the past in 2017 which showed atrial fibrillation as well. Given her presentation she was admitted to the hospital and her troponins have been trending downwards. On further history the patient did complain of some mild chest pain last evening, similar to her angina in the past though of less intensity. A 2D echo was performed and preliminary results demonstrate normal LV size and function, moderate posterior mitral leaflet calcification, mild mitral regurgitation, unable to quantitate RVSP. Final results pending. Patient is currently resting comfortably. She is being treated with antibiotic therapy, her Eliquis has been held in anticipation of possible catheterization. [] Past Medical History Allergies/Adverse Reactions: Allergies homatropine [From Hycodan (with homatropin)] Allergy (Verified 12/14/18 16:54) Nausea homatropine methylbromide [From Hycodan (with homatropin)] Allergy (Verified 12/14/18 16:54) Nausea hydrocodone bitartrate [From Vicodin] Allergy (Verified 12/14/18 22:16) Hives maitake mushroom Allergy (Verified 12/14/18 16:54) Rash Home Medications: Ambulatory Orders Medication Instructions Recorded Metoprolol Tartrate [Lopressor 25 mg PO BID 07/07/14 (beta susie)] Ranitidine [Zantac] 150 mg PO BID 06/18/16 Nitroglycerin (INPATIENT USE) 0.4 mg SUBLINGUAL Q5M PRN 11/18/16 [Nitrostat] Acetaminophen [Tylenol] 1,000 mg PO Q8H PRN tablet 12/28/16 Albuterol Aerosols [Ventolin 2.5 mg INHALATION Q6H PRN PRN #60 12/28/16 Aerosols] Menthol/Lanolin/Calamine/Znox 1 applic TOPICAL TID #1 tube 12/28/16 [Calmoseptine Ointment] Apixaban [Eliquis] 2.5 mg PO BID 12/14/18 Atorvastatin Calcium [Lipitor] 80 mg PO QHS 12/14/18 Cholecalciferol (Vitamin D3) 8,000 unit PO DAILY 12/14/18 [Vitamin D3] Clonidine HCl [Catapres] 0.1 mg PO BID 12/14/18 Fluticasone 0.05% [Flonase Nasal 1 spray NASAL DAILY PRN PRN 12/14/18 [place]] Hydrochlorothiazide 12.5 mg PO DAILY 12/14/18 Insulin NPH Hum/Reg Insulin Hm 10 units SQ TIDCM 12/14/18 [Relion Novolin 70-30 Vial] Insulin NPH Human Isophane 35 units SQ BID 12/14/18 [Novolin N] Levothyroxine Sodium [Synthroid] 137 mcg PO DAILY 12/14/18 Montelukast [Singulair] 10 mg PO QHS 12/14/18 Olopatadine HCl 1 drop EACH EYE DAILY 12/14/18 Past Medical History (Chronic Problems): Chronic Problems CRI (chronic renal insufficiency) (Chronic) Morbid obesity (Chronic) H/O coronary angioplasty (Chronic) Tinea unguium (Chronic) Vitamin D deficiency (Chronic) GERD (gastroesophageal reflux disease) (Chronic) Hyperlipidemia (Chronic) Hypertension (Chronic) Diabetes mellitus (Chronic) COLD (chronic obstructive lung disease) (Chronic) 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 Psychiatric History: No pertinent psych hx SENIOR COST ANALYST History: No pertinent SENIOR COST ANALYST history - *Family History Sibling History Items: Heart Disease Paternal History Items: Diabetes, Heart Disease, - - Father at the age of 56 of emphysema. Maternal History Items: - - Her mother lived to be 97 and of old age. Lives: With Family Smoking Status: Never smoker Tobacco Use: Non-smoker Alcohol: None Drugs: None Review of Systems - Review of Systems General: Denies: Fever, Night Sweats, Fatigue Cardiovascular: Reports: Chest Discomfort, Chest Discomfort at Rest, Chest Discomfort with Exertion. Denies: Shortness of Breath, Orthopnea, PND, Peripheral Edema, Palpitations, Lightheadedness, Dizziness, Near Syncope, Syncope Respiratory: Denies: Cough, Sputum Production, Hemoptysis Gastrointestinal: Reports: Nausea, Emesis, Diarrhea. Denies: Hematemesis, Hematochezia, Melena Genitourinary: Denies: Dysuria, Hematuria Skin: Denies: Rash Subjectve: Patient resting comfortably, no acute distress. Objective: Vital Signs Temp Pulse Resp BP Pulse Ox 97.8 F 87 15 139/55 H 97 12/15/18 12:30 12/15/18 12:32 12/15/18 12:30 12/15/18 12:32 12/15/18 12:30 Oxygen Delivery Method Room Air Weight: 290 lb 5.581 oz Body Mass Index (BMI) 48.3 Finger Stick Blood Glucose 575 Intake and Output for Last 24 Hours 12/13/18 12/14/18 12/15/18 23:59 23:59 23:59 Intake Total 67.7 / 67.7 1194 / 1194 Output Total 25 / 25 450 / 450 Balance 42.7 / 42.7 744 / 744 General: Awake, Alert, Oriented x 3 HEENT: PERRL, EOMI, Sclera Non Icteric Neck: Supple, Good ROM, No Lymph Node Enlargement Lungs: Clear to auscultation Cardiovascular: Irregular Rhythm, Normal S1, Normal S2, No Murmurs, No Rubs, No Gallops Vascular: No Carotid Bruits, Normal Femoral Pulses, Normal Radial Pulses, Normal Dorsalis Pedal Pulse, Normal Posterior Tibial Pulses Abdomen: Bowel Sounds Present, Soft, Non Tender, No HSM, No Organomegaly Extremities: No Cyanosis, No Clubbing, Bilateral Edema +2 Neurological: No Focal Motor or Sensory Deficit 12/14/18 17:55: WBC 13.3 H, RBC 4.39, Hgb 12.7, Hct 37.9, MCV 86.3, MCH 28.9, MCHC 33.5, RDW 14.8 H, RDW Differential 46.3 H, Plt Count 196, MPV 9.7, Immature Gran % (Auto) 0.300, Neut % (Auto) 85.2 H, Lymph % (Auto) 7.1 L, [place] % (Auto) 7.1, Eos % (Auto) 0.1, Baso % (Auto) 0.2, Absolute Neuts (auto) 11.4 H, Total Counted Not Reportable 12/14/18 17:55: PT 16.9 H, INR 1.4, APTT 36.3 H 12/14/18 17:55: Sodium 132 L, Potassium 3.6, Chloride 98, Carbon Dioxide 25.0, Anion Gap 9, BUN 39 H, Creatinine 1.63 H, Est GFR (MDRD) Af Amer 39 L, Est GFR (MDRD) Non-Af 32 L, BUN/Creatinine Ratio 23.9 H, Glucose 217 H, Calcium 9.1, Total Bilirubin 0.90, Troponin I 1.050 H* 12/14/18 17:55: Lactic Acid 1.9 12/14/18 20:50: Urine Color Yellow, Urine Clarity Cloudy, Urine pH 7.0, Ur Specific [place] 1.010, Urine Protein 100 H, Urine Glucose (UA) Normal, Urine Ketones Negative, Urine Occult Blood 150 H, Urine Nitrite Positive H, Urine Bilirubin Negative, Urine Urobilinogen Normal, Ur Leukocyte Esterase 500 H, Urine RBC 0 SEEN, Urine WBC >100 SEEN 12/14/18 21:30: Troponin I 0.876 H* 12/14/18 21:30: Magnesium 1.9 12/15/18 01:00: Troponin I 0.744 H* 12/15/18 06:00: WBC 12.7 H, RBC 4.06 L, Hgb 11.6 L, Hct 35.1 L, MCV 86.5, MCH 28.6, MCHC 33.0, RDW 14.7 H, RDW Differential 45.4 H, Plt Count 179, MPV 9.8 12/15/18 06:00: Sodium 135 L, Potassium 3.4 L, Chloride 102, Carbon Dioxide 22.0, Anion Gap 11, BUN 36 H, Creatinine 1.50 H, Est GFR (MDRD) Af Amer 43 L, Est GFR (MDRD) Non-Af 35 L, BUN/Creatinine Ratio 24.0 H, Glucose 223 H, Calcium 8.5, Total Bilirubin 1.00, Triglycerides 81, Cholesterol 67, LDL Cholesterol 19, VLDL Cholesterol 16, HDL Cholesterol 32 L 12/15/18 06:00: PT 16.4 H, INR 1.3, APTT 34.6 Rhythm: EKG: ECHO: Stress Test: Cardiac Cath: PCI: CT Surgery: Holter monitor: EPS: PPM: CXR: Chest CT Scan: Assessment/Plan 1. Non-STEMI: The patient has a history of coronary disease status post stenting in the past in [place] although we do not have any of those results. She has never seen a lobster fisherman here at [place]. She is currently chest pain-free. Her troponin was initially 1.0 and now is decreasing. Her EKG shows old anteroseptal wall myocardial infarction and no dynamic EKG changes. At this point I will continue the patient on baby aspirin, hold her Eliquis in anticipation of possible catheterization sometime early next week, most likely via the right radial approach given her edema, and cellulitis. In the meantime we await the official results of her echocardiogram. I would not recommend a stress test at this time given the patient's abnormal troponin and chest pain. I would recommend trying to obtain records from her lobster fisherman down in [place] or from the hospital in which she got her angioplasty. I would recommend starting her on Plavix 75 mg p.o. daily in anticipation of possible PCI on Tuesday. 2. Atrial fibrillation: I recommend holding her Eliquis in order to safely perform her catheterization this upcoming week to me no deterioration in her cellulitis. She will need to be bridged with Lovenox 1 mg/kg subcu twice daily prior to her catheterization, starting on 12/17/2018. 3. Hyperlipidemia: Recommend repeating a fasting lipid profile. Her LDL should be less than 70 given her risk factors. Continue Lipitor. 4. Thank you very much for the opportunity to participate in the cardiac care of your patient. Consultation time took place between 8 AM and 8:30 AM. Code Visit Inpatient E&M: 21701 Init Hosp L2
[2018-12-15 18:06] LABS: Bedside Glucose 221 mg/dL (70-110)
[2018-12-15] MEDS: 0.9% Normal Saline 1,000 ML 100 ML IV (18:10)
[2018-12-15] MEDS: Atorvastatin Calcium 80 MG Tablet PO (21:29)
[2018-12-15] MEDS: Montelukast 10 MG Tablet PO (21:29)
[2018-12-15 22:06] LABS: Bedside Glucose 239 mg/dL (70-110)
[2018-12-16] VITALS (18 sets, daily range): BP systolic 117–145; BP diastolic 62–77; PULSE 79–106; RESP 15–22; TEMP 36.9–37.4; O2SAT 95–98
[2018-12-16] MEDS: Nitroglycerin Oint 1 INCH PACKET 0.5 INCH TRANSDERM. ×4 (00:30→18:59)
[2018-12-16] MEDS: Levothyroxine 137 MCG Tablet PO (05:00)
[2018-12-16] MEDS: Nystatin Powder 15gm Bottle 1 APPLIC TOPICAL ×3 (05:04→21:44)
[2018-12-16] MEDS: 0.9% Normal Saline 1,000 ML 100 ML IV (05:09)
--- NOTE | 2018-12-16 07:00 | PCA ---
12/16/18 notified Tricia BOLAND of pt weight change
[2018-12-16 07:05] LABS: Bedside Glucose 130 mg/dL (70-110)
[2018-12-16] MEDS: Ipratropium/Albuterol Sulfate 3 ML AMPUL.NEB INHALATION ×2 (07:08→19:44)
[2018-12-16 07:31] LABS: Hematocrit 33.7 % (37-47); Hemoglobin 11.2 g/dl (12.0-15.0); Mean Corp Hgb Conc 33.2 g/gl (32-36); Mean Corpuscular Hgb 28.8 pg (27.0-32.0); Mean Corpuscular Volume 86.6 fL (81-99); Mean Platelet Vol. 9.3 fl (6.2-12.0); Platelet Count 194 K/mm3 (150-450); RBC Distribution Width CV 14.8 % (11.6-14.6); RBC Distribution Width SD 46.7 fl (35.1-43.9); Red Blood Count 3.89 M/mm3 (4.2-5.4)
[2018-12-16 07:32] LABS: Scan Indicated on CBC? Y/N NO
[2018-12-16 07:57] LABS: Anion Gap 9 (5-15); BUN 29 mg/dL (7-18); BUN/Creat Ratio 20.7 RATIO (10-20); Calcium,Total 8.5 mg/dL (8.5-10.1); Chloride 107 mmol/L (98-107); EST Glomerular Filtration Rate 38 mL/min (>60); Est Glom Filt Rate - Afr Amer 46 mL/min (>60); Estimated Creatinine Clearance 28.36 ml/min; Glucose 142 mg/dL (74-106); Potassium 3.5 mmol/L (3.5-5.1); Sodium Level 138 mmol/L (136-145)
--- NOTE | 2018-12-16 09:26 | PCM.PN.CARD ---
Subjectve: Patient seen and evaluated. Appears to be doing well. Objective: Vital Signs Temp Pulse Resp BP Pulse Ox 98.4 F 88 22 H 128/64 H 98 12/16/18 04:57 12/16/18 07:15 12/16/18 07:08 12/16/18 05:01 12/16/18 07:08 Oxygen Delivery Method Room Air Weight: 303 lb 9.224 oz Body Mass Index (BMI) 48.3 Finger Stick Blood Glucose 575 Intake and Output for Last 24 Hours 12/14/18 12/15/18 12/16/18 23:59 23:59 23:59 Intake Total 67.7 / 67.7 2824 / 2824 1309 / 1309 Output Total 25 / 25 750 / 750 350 / 350 Balance 42.7 / 42.7 207 / 4 959 / 959 General: Awake, Alert, Oriented x 3 HEENT: PERRL, EOMI, Sclera Non Icteric Neck: Supple, Good ROM, No Lymph Node Enlargement Lungs: Clear to auscultation Cardiovascular: Irregular Rhythm, Normal S1, Normal S2, No Murmurs, No Rubs, No Gallops Vascular: No Carotid Bruits, Normal Femoral Pulses, Normal Radial Pulses, Normal Dorsalis Pedal Pulse, Normal Posterior Tibial Pulses Abdomen: Bowel Sounds Present, Soft, Non Tender, No HSM, No Organomegaly Extremities: No Cyanosis, No Clubbing, Bilateral Edema +1 Musculoskeletal: Erythema Skin: No Rashes Lymphatic: No Lymph Node Enlargement Neurological: No Focal Motor or Sensory Deficit Psych/Mental Status: Appropriate 12/16/18 06:43: WBC 11.0, RBC 3.89 L, Hgb 11.2 L, Hct 33.7 L, MCV 86.6, MCH 28.8, MCHC 33.2, RDW 14.8 H, RDW Differential 46.7 H, Plt Count 194, MPV 9.3 12/16/18 06:43: Sodium 138, Potassium 3.5, Chloride 107, Carbon Dioxide 22.0, Anion Gap 9, BUN 29 H, Creatinine 1.40 H, Est GFR (MDRD) Af Amer 46 L, Est GFR (MDRD) Non-Af 38 L, BUN/Creatinine Ratio 20.7 H, Glucose 142 H, Calcium 8.5 Rhythm: EKG: ECHO: Stress Test: Cardiac Cath: PCI: CT Surgery: Holter monitor: EPS: PPM: CXR: Chest CT Scan: Medical Necessity - Tobacco Use Smoking Status: Never smoker Tobacco Use: Non-smoker Assessment/Plan 1. Non-STEMI: The patient has a history of coronary disease status post stenting in the past in [place] although we do not have any of those results. She has never seen a agricultural engineering teacher here at [place]. She is currently chest pain-free. Her troponin was initially 1.0 and now is decreasing. Her EKG shows old anteroseptal wall myocardial infarction and no dynamic EKG changes. At this point I will continue the patient on baby aspirin, hold her Eliquis in anticipation of possible catheterization sometime early next week, most likely via the right radial approach given her edema, and cellulitis. I would not recommend a stress test at this time given the patient's abnormal troponin and chest pain. I would recommend trying to obtain records from her agricultural engineering teacher down in [place] or from the hospital in which she got her angioplasty. I would recommend starting her on Plavix 75 mg p.o. daily in anticipation of possible PCI on Tuesday morning. 2. Atrial fibrillation: I recommend holding her Eliquis in order to safely perform her catheterization this upcoming week to me no deterioration in her cellulitis. She will need to be bridged with Lovenox 1 mg/kg subcu twice daily prior to her catheterization, starting on 12/17/2018. 3. Hyperlipidemia: Recommend repeating a fasting lipid profile. Her LDL should be less than 70 given her risk factors. Continue Lipitor. 4. Thank you very much for the opportunity to participate in the cardiac care of your patient.
--- NOTE | 2018-12-16 09:29 | PN.CARD_ITS ---
Subjectve: Patient seen and evaluated. Appears to be doing well. Objective: Vital Signs Temp Pulse Resp BP Pulse Ox 98.4 F 88 22 H 128/64 H 98 12/16/18 04:57 12/16/18 07:15 12/16/18 07:08 12/16/18 05:01 12/16/18 07:08 Oxygen Delivery Method Room Air Weight: 303 lb 9.224 oz Body Mass Index (BMI) 48.3 Finger Stick Blood Glucose 575 Intake and Output for Last 24 Hours 12/14/18 12/15/18 12/16/18 23:59 23:59 23:59 Intake Total 67.7 / 67.7 2824 / 2824 1309 / 1309 Output Total 25 / 25 750 / 750 350 / 350 Balance 42.7 / 42.7 207 / 4 959 / 959 General: Awake, Alert, Oriented x 3 HEENT: PERRL, EOMI, Sclera Non Icteric Neck: Supple, Good ROM, No Lymph Node Enlargement Lungs: Clear to auscultation Cardiovascular: Irregular Rhythm, Normal S1, Normal S2, No Murmurs, No Rubs, No Gallops Vascular: No Carotid Bruits, Normal Femoral Pulses, Normal Radial Pulses, Normal Dorsalis Pedal Pulse, Normal Posterior Tibial Pulses Abdomen: Bowel Sounds Present, Soft, Non Tender, No HSM, No Organomegaly Extremities: No Cyanosis, No Clubbing, Bilateral Edema +1 Musculoskeletal: Erythema Skin: No Rashes Lymphatic: No Lymph Node Enlargement Neurological: No Focal Motor or Sensory Deficit Psych/Mental Status: Appropriate 12/16/18 06:43: WBC 11.0, RBC 3.89 L, Hgb 11.2 L, Hct 33.7 L, MCV 86.6, MCH 28.8, MCHC 33.2, RDW 14.8 H, RDW Differential 46.7 H, Plt Count 194, MPV 9.3 12/16/18 06:43: Sodium 138, Potassium 3.5, Chloride 107, Carbon Dioxide 22.0, Anion Gap 9, BUN 29 H, Creatinine 1.40 H, Est GFR (MDRD) Af Amer 46 L, Est GFR (MDRD) Non-Af 38 L, BUN/Creatinine Ratio 20.7 H, Glucose 142 H, Calcium 8.5 Rhythm: EKG: ECHO: Stress Test: Cardiac Cath: PCI: CT Surgery: Holter monitor: EPS: PPM: CXR: Chest CT Scan: Medical Necessity - Tobacco Use Smoking Status: Never smoker Tobacco Use: Non-smoker Assessment/Plan 1. Non-STEMI: The patient has a history of coronary disease status post stenting in the past in [place] although we do not have any of those results. She has never seen a production hardener here at [place]. She is currently chest pain- free. Her troponin was initially 1.0 and now is decreasing. Her EKG shows old anteroseptal wall myocardial infarction and no dynamic EKG changes. At this point I will continue the patient on baby aspirin, hold her Eliquis in anticipation of possible catheterization sometime early next week, most likely via the right radial approach given her edema, and cellulitis. I would not recommend a stress test at this time given the patient's abnormal troponin and chest pain. I would recommend trying to obtain records from her production hardener down in [place] or from the hospital in which she got her angioplasty. I would recommend starting her on Plavix 75 mg p.o. daily in anticipation of possible PCI on Tuesday morning. 2. Atrial fibrillation: I recommend holding her Eliquis in order to safely perform her catheterization this upcoming week to me no deterioration in her cellulitis. She will need to be bridged with Lovenox 1 mg/kg subcu twice daily prior to her catheterization, starting on 12/17/2018. 3. Hyperlipidemia: Recommend repeating a fasting lipid profile. Her LDL should be less than 70 given her risk factors. Continue Lipitor. 4. Thank you very much for the opportunity to participate in the cardiac care of your patient.
[2018-12-16] MEDS: Glucerna Shake 120 ML LIQUID PO ×3 (10:09→18:58)
[2018-12-16] MEDS: Aspirin E.C. 81 MG Tablet PO (10:09)
[2018-12-16] MEDS: Insulin NPH Human 100 UNITS/ML PEN 35 UNITS SC ×2 (10:11→17:29)
[2018-12-16] MEDS: Insulin Lispro 100 UNIT/ML INSULN.PEN 13 UNIT SC ×3 (10:11→17:27)
[2018-12-16] MEDS: Menthol/Lanolin/Calamine/Znox 113 GM Tube 1 APPLIC TOPICAL ×4 (10:12→21:43)
[2018-12-16] MEDS: cloNIDine HCl 0.1 MG Tablet PO ×2 (10:13→21:45)
[2018-12-16] MEDS: Famotidine 20 MG Tablet PO ×2 (10:13→21:45)
[2018-12-16] MEDS: Metoprolol Tartrate 25 MG Tablet PO ×2 (10:13→21:45)
[2018-12-16] MEDS: Acetaminophen 325 MG Tablet 650 MG PO (10:14)
[2018-12-16] MEDS: Fluticasone 0.05% 1 SPRAY NASAL.SRY NASAL (10:17)
--- NOTE | 2018-12-16 10:38 | PCM.PROGNOTE ---
<Laura Moss - Last Filed: 12/16/18 10:56> Patient Problems: Active and Suspected Problems NSTEMI (non-ST elevated myocardial infarction) (Acute) Cellulitis of left lower extremity (Acute) Nausea vomiting and diarrhea (Acute) Subjective: Patient seen and examined. Denies further chest pain/chest pressure. No further diarrhea, nausea, vomiting. Continues to have generalized URI symptoms. Denies fever, chills. Complains of bilateral heel pain. - Physical Exam General: Alert, Oriented x3, Cooperative HEENT: Atraumatic, PERRLA, EOMI, Normocephalic Neck: Supple, No JVD, Negative Carotid Bruits Lungs: Clear to auscultation, Diminished Cardiovascular: Regular rate, Regular Rhythm, Normal S1, Normal S2, No murmurs Abdomen: Bowel Sounds Present, Soft, Non Tender, Non-Distended Extremities: No clubbing, No cyanosis, Edema - Bilateral lower extremities Skin: - - Left lower extremity with erythema, edema and medial calf bullae s/p drainage. Chronic stage II decub coccyx ulcer. Musculoskeletal: No Tenderness to Palpation of Joints or Extremities Neurological: Cranial nerves II-XII grossly intact, Neuro grossly intact Psych/Mental Status: Normal Affect, Appropriate Vital Signs Temp Pulse Resp BP Pulse Ox 99.2 F H 98 20 H 117/62 95 12/16/18 09:40 12/16/18 10:13 12/16/18 09:40 12/16/18 09:40 12/16/18 09:40 Oxygen Delivery Method Room Air Weight: 303 lb 9.224 oz Body Mass Index (BMI) 48.3 Finger Stick Blood Glucose 575 Intake and Output for Last 24 Hours 12/14/18 12/15/18 12/16/18 23:59 23:59 23:59 Intake Total 67.7 / 67.7 2824 / 2824 1309 / 1309 Output Total 25 / 25 750 / 750 350 / 350 Balance 42.7 / 42.7 2074 / 2074 959 / 959 Microbiology Past 72 Hours 12/15/18 13:13 Respiratory Panel (PCR) - Final Mucosa - Nose Parainfluenza 1 12/14/18 20:50 Urine Culture - Preliminary Urine, Catheterized Culture exhibits no growth. Laboratory Tests Past 24 Hrs 12/16/18 12/16/18 06:43 06:43 WBC 11.0 RBC 3.89 L Hgb 11.2 L Hct 33.7 L MCV 86.6 MCH 28.8 MCHC 33.2 RDW 14.8 H RDW Differential 46.7 H Plt Count 194 MPV 9.3 Sodium 138 Potassium 3.5 Chloride 107 Carbon Dioxide 22.0 Anion Gap 9 BUN 29 H Creatinine 1.40 H Estim Creat Clear Calc 28.36 Est GFR (MDRD) Af Amer 46 L Est GFR (MDRD) Non-Af 38 L BUN/Creatinine Ratio 20.7 H Glucose 142 H Calcium 8.5 POC Glucose 12/16/18 12/15/18 12/15/18 07:01 21:56 17:41 POC Glucose 130 H 239 H 221 H 12/15/18 12:16 POC Glucose 267 H Medical Necessity - Tobacco Use Smoking Status: Never smoker Tobacco Use: Non-smoker Assessment/Plan All Active Problems NSTEMI (non-ST elevated myocardial infarction) (Acute) Cellulitis of left lower extremity (Acute) Nausea vomiting and diarrhea (Acute) Hyponatremia (Acute) Cellulitis (Acute) Blister of toe of right foot (Acute) Hyperosmolar nonketotic coma in diabetes (Acute) Atrial fibrillation with rapid ventricular response (Acute) Urinary tract infection due to Klebsiella species (Acute) Community acquired pneumonia (Acute) Severe sepsis (Acute) New onset atrial fibrillation (Acute) Pneumonia (Acute) Acute respiratory failure with hypoxia (Acute) Rhinovirus infection (Acute) Cystitis (Acute) Sepsis (Acute) UTI (urinary tract infection) (Acute) Nephrolithiasis (Acute) 1. Acute NSTEMI-cardiology following. Plan for cardiac catheterization tentatively 12/18/2018. Continue aspirin, beta-susie, statin. Echocardiogram showed an EF of 65%. 2. Left lower extremity cellulitis with large medial calf bullae with appearance of yellow serous fluid-left lower extremity duplex ultrasound negative for DVT. Continue IV Zosyn. Wound RN consulted. Bullae drained by wound RN. Apply Silvadene followed by ABD, Kerlix and Jesus wrap. Change daily. 3. Acute UTI, ruled out-UTI initially suspected based on UA. Urine culture shows no growth. Suspect UA with contamination. 4. Acute parainfluenza 1-Respiratory panel + parainfluenza 1. Chest x-ray without acute process. Continue Singulair, Flonase regimen. Albuterol and DuoNeb aerosol. PRN Robitussin. Continue symptom management. Denies significant shortness of breath, do not feel steroids are necessary. 5. Suspected viral gastroenteritis-resolved. Patient reports family with similar symptoms prior to admission. Denies further nausea, vomiting, diarrhea. 6. Stage II coccyx decubitus ulcer, present on admission-frequent position changes, wound RN consulted. 7. CAD-holding Eliquis given plans for cardiac catheterization. Continue aspirin, statin, beta-susie. 8. Paroxysmal atrial fibrillation-continue beta-susie regimen. Eliquis on hold. 9. Hyperlipidemia-continue statin. 10. Hypertension-stable, continue clonidine, metoprolol regimen. 11. Hypothyroidism-continue Synthroid regimen. 12. Chronic COPD and asthma-no acute exacerbation. As needed albuterol aerosol. 13. 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 Continue home insulin regimen, Accu-Cheks ACHS with sliding scale insulin. 14. Chronic kidney disease stage III-stable, trend BMP. 15. GERD-continue home ranitidine regimen. DVT prophylaxis-SCDs, Lovenox This patient was seen by SONAM Silva under the supervision of Dr. Bean. <Rocky Bean - Last Filed: 12/16/18 13:03> - Physical Exam Vital Signs Temp Pulse Resp BP Pulse Ox 99.2 F H 98 20 H 117/62 95 12/16/18 09:40 12/16/18 10:13 12/16/18 09:40 12/16/18 09:40 12/16/18 09:40 Oxygen Delivery Method Room Air Weight: 137.7 kg Body Mass Index (BMI) 48.3 Finger Stick Blood Glucose 575 Intake and Output for Last 24 Hours 12/14/18 12/15/18 12/16/18 23:59 23:59 23:59 Intake Total 67.7 / 67.7 2824 / 2824 1309 / 1309 Output Total 25 / 25 750 / 750 350 / 350 Balance 42.7 / 42.7 2074 / 2074 959 / 959 Microbiology Past 72 Hours 12/15/18 13:13 Respiratory Panel (PCR) - Final Mucosa - Nose Parainfluenza 1 12/14/18 20:50 Urine Culture - Preliminary Urine, Catheterized Culture exhibits no growth. Laboratory Tests Past 24 Hrs 12/16/18 12/16/18 06:43 06:43 WBC 11.0 RBC 3.89 L Hgb 11.2 L Hct 33.7 L MCV 86.6 MCH 28.8 MCHC 33.2 RDW 14.8 H RDW Differential 46.7 H Plt Count 194 MPV 9.3 Sodium 138 Potassium 3.5 Chloride 107 Carbon Dioxide 22.0 Anion Gap 9 BUN 29 H Creatinine 1.40 H Estim Creat Clear Calc 28.36 Est GFR (MDRD) Af Amer 46 L Est GFR (MDRD) Non-Af 38 L BUN/Creatinine Ratio 20.7 H Glucose 142 H Calcium 8.5 POC Glucose 12/16/18 12/15/18 12/15/18 07:01 21:56 17:41 POC Glucose 130 H 239 H 221 H Assessment/Plan This patient was seen in conjunction with SONAM Silva . I have independently interviewed and examined the patient and reviewed pertinent historical, laboratory, and other data. Please refer to SONAM Silva note for details of this patient's presentation, findings, and recommendations. I have reviewed SONAM Silva note and concur with documented findings. In brief, patient is a 83-year-old lady with multiple comorbidities including CAD with previous angioplasty, diabetes mellitus type 2 hypertension who presented with erythema and warmth involving the left lower extremity in addition to chest pain. An assessment of acute left lower extremity cellulitis was made. Patient was also found to have elevated troponin consistent with non-STEMI admitted to monitored bed for further management 12/16/2018. Patient seen complains of left lower extremity pain. Physical Examination: GENERAL: cooperative HEENT: Atraumatic; EYES; Anicteric, Normal Conjunctiva NECK; supple, normal thyroid, RESPIRATORY: Diminished to auscultation CARDIOVASCULAR: Regular S1 S2, GI: soft, non-tender, normoactive bowel sounds, : No Renal angle tenderness; NEURO: Awake; no lateralizing signs. SKIN: Erythema and warmth involving the left lower extremity PSYCH; Normal affect Assessment: 1. Acute non-STEMI: Plan for left heart catheterization early next week 2. Left lower extremity cellulitis 3. Acute cystitis 4. Chronic kidney disease stage III 5. GERD 6. Hypertension 7. Diabetes mellitus type 2 8. Paroxysmal atrial fibrillation 9. Coronary artery disease with previous angioplasty 10. Allergic rhinitis 11. Dyslipidemia 12. Morbid obesity with BMI of 48.3 13. COPD currently not in exacerbation 14. Stage II coccyx decubitus ulcer, present on admission Recommendations: 1. I have discussed the results of my overview and impressions with the patient 2. Options for management were reviewed Code Visit Inpatient E&M: 67938 Subs Hosp L2
--- NOTE | 2018-12-16 10:55 | PN_ITS ---
<Laura Moss - Last Filed: 12/16/18 10:56> Patient Problems: Active and Suspected Problems NSTEMI (non-ST elevated myocardial infarction) (Acute) Cellulitis of left lower extremity (Acute) Nausea vomiting and diarrhea (Acute) Subjective: Patient seen and examined. Denies further chest pain/chest pressure. No f urther diarrhea, nausea, vomiting. Continues to have generalized URI symptoms. Denies fever, chills. Complains of bilateral heel pain. - Physical Exam General: Alert, Oriented x3, Cooperative HEENT: Atraumatic, PERRLA, EOMI, Normocephalic Neck: Supple, No JVD, Negative Carotid Bruits Lungs: Clear to auscultation, Diminished Cardiovascular: Regular rate, Regular Rhythm, Normal S1, Normal S2, No murmurs Abdomen: Bowel Sounds Present, Soft, Non Tender, Non-Distended Extremities: No clubbing, No cyanosis, Edema - Bilateral lower extremities Skin: - - Left lower extremity with erythema, edema and medial calf bullae s/p drainage. Chronic stage II decub coccyx ulcer. Musculoskeletal: No Tenderness to Palpation of Joints or Extremities Neurological: Cranial nerves II-XII grossly intact, Neuro grossly intact Psych/Mental Status: Normal Affect, Appropriate Vital Signs Temp Pulse Resp BP Pulse Ox 99.2 F H 98 20 H 117/62 95 12/16/18 09:40 12/16/18 10:13 12/16/18 09:40 12/16/18 09:40 12/16/18 09:40 Oxygen Delivery Method Room Air Weight: 303 lb 9.224 oz Body Mass Index (BMI) 48.3 Finger Stick Blood Glucose 575 Intake and Output for Last 24 Hours 12/14/18 12/15/18 12/16/18 23:59 23:59 23:59 Intake Total 67.7 / 67.7 2824 / 2824 1309 / 1309 Output Total 25 / 25 750 / 750 350 / 350 Balance 42.7 / 42.7 2074 / 2074 959 / 959 Microbiology Past 72 Hours 12/15/18 13:13 Respiratory Panel (PCR) - Final Mucosa - Nose Parainfluenza 1 12/14/18 20:50 Urine Culture - Preliminary Urine, Catheterized Culture exhibits no growth. Laboratory Tests Past 24 Hrs 12/16/18 12/16/18 06:43 06:43 WBC 11.0 RBC 3.89 L Hgb 11.2 L Hct 33.7 L MCV 86.6 MCH 28.8 MCHC 33.2 RDW 14.8 H RDW Differential 46.7 H Plt Count 194 MPV 9.3 Sodium 138 Potassium 3.5 Chloride 107 Carbon Dioxide 22.0 Anion Gap 9 BUN 29 H Creatinine 1.40 H Estim Creat Clear Calc 28.36 Est GFR (MDRD) Af Amer 46 L Est GFR (MDRD) Non-Af 38 L BUN/Creatinine Ratio 20.7 H Glucose 142 H Calcium 8.5 POC Glucose 12/16/18 12/15/18 12/15/18 07:01 21:56 17:41 POC Glucose 130 H 239 H 221 H 12/15/18 12:16 POC Glucose 267 H Medical Necessity - Tobacco Use Smoking Status: Never smoker Tobacco Use: Non-smoker Assessment/Plan All Active Problems NSTEMI (non-ST elevated myocardial infarction) (Acute) Cellulitis of left lower extremity (Acute) Nausea vomiting and diarrhea (Acute) Hyponatremia (Acute) Cellulitis (Acute) Blister of toe of right foot (Acute) Hyperosmolar nonketotic coma in diabetes (Acute) Atrial fibrillation with rapid ventricular response (Acute) Urinary tract infection due to Klebsiella species (Acute) Community acquired pneumonia (Acute) Severe sepsis (Acute) New onset atrial fibrillation (Acute) Pneumonia (Acute) Acute respiratory failure with hypoxia (Acute) Rhinovirus infection (Acute) Cystitis (Acute) Sepsis (Acute) UTI (urinary tract infection) (Acute) Nephrolithiasis (Acute) 1. Acute NSTEMI-cardiology following. Plan for cardiac catheterization tentatively 12/18/2018. Continue aspirin, beta-susie, statin. Echocardiogram showed an EF of 65%. 2. Left lower extremity cellulitis with large medial calf bullae with appearance of yellow serous fluid-left lower extremity duplex ultrasound negative for DVT. Continue IV Zosyn. Wound RN consulted. Bullae drained by wound RN. Apply Silvadene followed by ABD, Kerlix and Jesus wrap. Change daily. 3. Acute UTI, ruled out-UTI initially suspected based on UA. Urine culture shows no growth. Suspect UA with contamination. 4. Acute parainfluenza 1-Respiratory panel + parainfluenza 1. Chest x-ray without acute process. Continue Singulair, Flonase regimen. Albuterol and DuoNeb aerosol. PRN Robitussin. Continue symptom management. Denies significant shortness of breath, do not feel steroids are necessary. 5. Suspected viral gastroenteritis-resolved. Patient reports family with similar symptoms prior to admission. Denies further nausea, vomiting, diarrhea. 6. Stage II coccyx decubitus ulcer, present on admission-frequent position changes, wound RN consulted. 7. CAD-holding Eliquis given plans for cardiac catheterization. Continue aspirin, statin, beta-susie. 8. Paroxysmal atrial fibrillation-continue beta-susie regimen. Eliquis on hold. 9. Hyperlipidemia-continue statin. 10. Hypertension-stable, continue clonidine, metoprolol regimen. 11. Hypothyroidism-continue Synthroid regimen. 12. Chronic COPD and asthma-no acute exacerbation. As needed albuterol aeros ol. 13. 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 Continue home insulin regimen, Accu-Cheks ACHS with sliding scale insulin. 14. Chronic kidney disease stage III-stable, trend BMP. 15. GERD-continue home ranitidine regimen. DVT prophylaxis-SCDs, Lovenox This patient was seen by SONAM Silva under the supervision of Dr. eBan. <Rocky Bean - Last Filed: 12/16/18 13:03> - Physical Exam Vital Signs Temp Pulse Resp BP Pulse Ox 99.2 F H 98 20 H 117/62 95 12/16/18 09:40 12/16/18 10:13 12/16/18 09:40 12/16/18 09:40 12/16/18 09:40 Oxygen Delivery Method Room Air Weight: 137.7 kg Body Mass Index (BMI) 48.3 Finger Stick Blood Glucose 575 Intake and Output for Last 24 Hours 12/14/18 12/15/18 12/16/18 23:59 23:59 23:59 Intake Total 67.7 / 67.7 2824 / 2824 1309 / 1309 Output Total 25 / 25 750 / 750 350 / 350 Balance 42.7 / 42.7 2074 / 2074 959 / 959 Microbiology Past 72 Hours 12/15/18 13:13 Respiratory Panel (PCR) - Final Mucosa - Nose Parainfluenza 1 12/14/18 20:50 Urine Culture - Preliminary Urine, Catheterized Culture exhibits no growth. Laboratory Tests Past 24 Hrs 12/16/18 12/16/18 06:43 06:43 WBC 11.0 RBC 3.89 L Hgb 11.2 L Hct 33.7 L MCV 86.6 MCH 28.8 MCHC 33.2 RDW 14.8 H RDW Differential 46.7 H Plt Count 194 MPV 9.3 Sodium 138 Potassium 3.5 Chloride 107 Carbon Dioxide 22.0 Anion Gap 9 BUN 29 H Creatinine 1.40 H Estim Creat Clear Calc 28.36 Est GFR (MDRD) Af Amer 46 L Est GFR (MDRD) Non-Af 38 L BUN/Creatinine Ratio 20.7 H Glucose 142 H Calcium 8.5 POC Glucose 12/16/18 12/15/18 12/15/18 07:01 21:56 17:41 POC Glucose 130 H 239 H 221 H Assessment/Plan This patient was seen in conjunction with SONAM Silva . I have independently interviewed and examined the patient and reviewed pertinent historical, laboratory, and other data. Please refer to SONAM Silva note for details of this patient's presentation, findings, and recommendations. I have reviewed SONAM Silva note and concur with documented findings. In brief, patient is a 83-year-old lady with multiple comorbidities including CAD with previous angioplasty, diabetes mellitus type 2 hypertension who presented with erythema and warmth involving the left lower extremity in additi on to chest pain. An assessment of acute left lower extremity cellulitis was made. Patient was also found to have elevated troponin consistent with non- STEMI admitted to monitored bed for further management 12/16/2018. Patient seen complains of left lower extremity pain. Physical Examination: GENERAL: cooperative HEENT: Atraumatic; EYES; Anicteric, Normal Conjunctiva NECK; supple, normal thyroid, RESPIRATORY: Diminished to auscultation CARDIOVASCULAR: Regular S1 S2, GI: soft, non-tender, normoactive bowel sounds, : No Renal angle tenderness; NEURO: Awake; no lateralizing signs. SKIN: Erythema and warmth involving the left lower extremity PSYCH; Normal affect Assessment: 1. Acute non-STEMI: Plan for left heart catheterization early next week 2. Left lower extremity cellulitis 3. Acute cystitis 4. Chronic kidney disease stage III 5. GERD 6. Hypertension 7. Diabetes mellitus type 2 8. Paroxysmal atrial fibrillation 9. Coronary artery disease with previous angioplasty 10. Allergic rhinitis 11. Dyslipidemia 12. Morbid obesity with BMI of 48.3 13. COPD currently not in exacerbation 14. Stage II coccyx decubitus ulcer, present on admission Recommendations: 1. I have discussed the results of my overview and impressions with the patient 2. Options for management were reviewed Code Visit Inpatient E&M: 82281 Subs Hosp L2
[2018-12-16] MEDS: Insulin Lispro 100 UNIT/ML INSULN.PEN SQ ×2 (12:40→17:25)
[2018-12-16 13:41] LABS: Bedside Glucose 219 mg/dL (70-110)
[2018-12-16 17:16] LABS: Bedside Glucose 203 mg/dL (70-110)
[2018-12-16] MEDS: 0.9% Normal Saline 1,000 ML 75 ML IV (17:35)
[2018-12-16] MEDS: Atorvastatin Calcium 80 MG Tablet PO (21:45)
[2018-12-16] MEDS: Montelukast 10 MG Tablet PO (21:45)
[2018-12-16 21:55] LABS: Bedside Glucose 140 mg/dL (70-110)
[2018-12-17] VITALS (18 sets, daily range): BP systolic 124–163; BP diastolic 46–80; PULSE 73–100; RESP 14–24; TEMP 36.5–37.3; O2SAT 96–100
[2018-12-17] MEDS: Nitroglycerin Oint 1 INCH PACKET 0.5 INCH TRANSDERM. ×2 (00:46→06:29)
[2018-12-17] MEDS: 0.9% Normal Saline 1,000 ML 75 ML IV ×2 (03:52→20:27)
[2018-12-17] MEDS: Nystatin Powder 15gm Bottle 1 APPLIC TOPICAL ×3 (06:29→22:10)
[2018-12-17] MEDS: Levothyroxine 137 MCG Tablet PO (06:29)
[2018-12-17] MEDS: Acetaminophen 325 MG Tablet 650 MG PO ×3 (06:34→22:05)
[2018-12-17] MEDS: Ipratropium/Albuterol Sulfate 3 ML AMPUL.NEB INHALATION ×3 (06:41→19:10)
[2018-12-17 06:46] LABS: Bedside Glucose 121 mg/dL (70-110)
[2018-12-17 07:09] LABS: Hematocrit 32.3 % (37-47); Hemoglobin 10.8 g/dl (12.0-15.0); Mean Corp Hgb Conc 33.4 g/gl (32-36); Mean Corpuscular Hgb 29.1 pg (27.0-32.0); Mean Corpuscular Volume 87.1 fL (81-99); Mean Platelet Vol. 9.1 fl (6.2-12.0); Platelet Count 209 K/mm3 (150-450); RBC Distribution Width SD 48.3 fl (35.1-43.9); Red Blood Count 3.71 M/mm3 (4.2-5.4); White Blood Count 11.2 K/mm3 (4.4-11.0)
[2018-12-17 07:15] LABS: Scan Indicated on CBC? Y/N NO
[2018-12-17 07:31] LABS: Anion Gap 10 (5-15); BUN 23 mg/dL (7-18); Calcium,Total 8.8 mg/dL (8.5-10.1); Chloride 110 mmol/L (98-107); Creatinine, Serum 1.21 mg/dL (0.55-1.02); EST Glomerular Filtration Rate 45 mL/min (>60); Est Glom Filt Rate - Afr Amer 55 mL/min (>60); Estimated Creatinine Clearance 32.81 ml/min; Glucose 121 mg/dL (74-106); Potassium 3.6 mmol/L (3.5-5.1); Sodium Level 141 mmol/L (136-145)
[2018-12-17] MEDS: Insulin Lispro 100 UNIT/ML INSULN.PEN 13 UNIT SC ×3 (09:11→16:26)
[2018-12-17] MEDS: Glucerna Shake 120 ML LIQUID PO ×3 (09:11→16:26)
[2018-12-17] MEDS: Insulin NPH Human 100 UNITS/ML PEN 35 UNITS SC ×2 (09:12→16:27)
[2018-12-17] MEDS: Menthol/Lanolin/Calamine/Znox 113 GM Tube 1 APPLIC TOPICAL ×4 (09:13→22:10)
[2018-12-17] MEDS: Fluticasone 0.05% 1 SPRAY NASAL.SRY NASAL (09:14)
[2018-12-17] MEDS: Metoprolol Tartrate 25 MG Tablet PO ×2 (09:14→22:04)
[2018-12-17] MEDS: cloNIDine HCl 0.1 MG Tablet PO ×2 (09:14→22:04)
[2018-12-17] MEDS: Famotidine 20 MG Tablet PO ×2 (09:15→22:04)
[2018-12-17] MEDS: Enoxaparin 150 MG/ML Syringe 140 MG SC ×2 (09:15→22:05)
--- NOTE | 2018-12-17 09:39 | PCM.PN.CARD ---
Subjectve: Patient seen and evaluated. Appears to be more stable today. Objective: Vital Signs Temp Pulse Resp BP Pulse Ox 99.1 F 100 24 H 139/75 H 96 12/17/18 03:38 12/17/18 09:14 12/17/18 06:41 12/17/18 09:14 12/17/18 06:41 Oxygen Delivery Method Room Air Weight: 305 lb 12.498 oz Body Mass Index (BMI) 48.3 Finger Stick Blood Glucose 575 Intake and Output for Last 24 Hours 12/15/18 12/16/18 12/17/18 23:59 23:59 23:59 Intake Total 2824 / 2824 4159.9 / 4159.9 767.7 / 767.7 Output Total 750 / 750 350 / 350 Balance 2074 / 2074 3809.9 / 3809.9 767.7 / 767.7 General: Awake, Alert, Oriented x 3 HEENT: PERRL, EOMI, Sclera Non Icteric Neck: Supple, Good ROM, No Lymph Node Enlargement Lungs: Clear to auscultation Cardiovascular: Regular Rhythm, Normal S1, Normal S2, No Murmurs, No Rubs, No Gallops Vascular: No Carotid Bruits, Normal Femoral Pulses, Normal Radial Pulses, Normal Dorsalis Pedal Pulse, Normal Posterior Tibial Pulses Abdomen: Bowel Sounds Present, Soft, Non Tender, No HSM, No Organomegaly Extremities: No Cyanosis, No Clubbing, No edema Musculoskeletal: Warmth Skin: No Rashes Lymphatic: No Lymph Node Enlargement Neurological: No Focal Motor or Sensory Deficit Psych/Mental Status: Appropriate 12/17/18 06:03: WBC 11.2 H, RBC 3.71 L, Hgb 10.8 L, Hct 32.3 L, MCV 87.1, MCH 29.1, MCHC 33.4, RDW 15.0 H, RDW Differential 48.3 H, Plt Count 209, MPV 9.1 12/17/18 06:03: Sodium 141, Potassium 3.6, Chloride 110 H, Carbon Dioxide 21.0, Anion Gap 10, BUN 23 H, Creatinine 1.21 H, Est GFR (MDRD) Af Amer 55 L, Est GFR (MDRD) Non-Af 45 L, BUN/Creatinine Ratio 19.0, Glucose 121 H, Calcium 8.8 Medical Necessity - Tobacco Use Smoking Status: Never smoker Tobacco Use: Non-smoker Assessment/Plan 1. Non-STEMI: The patient has a history of coronary disease status post stenting in the past in [place] although we do not have any of those results. She has never seen a wool brusher here at [place]. She is currently chest pain-free. Her troponin was initially 1.0 and now is decreasing. Her EKG shows old anteroseptal wall myocardial infarction and no dynamic EKG changes. At this point I will continue the patient on baby aspirin, hold her Eliquis in anticipation of possible catheterization sometime early next week, most likely via the right radial approach given her edema, and cellulitis. Left heart cath tentatively scheduled for Tuesday. Further recommendations will depend on the results of that. 2. Atrial fibrillation: I recommend holding her Eliquis in order to safely perform her catheterization this upcoming week to me no deterioration in her cellulitis. She will need to be bridged with Lovenox 1 mg/kg subcu twice daily prior to her catheterization, starting on 12/17/2018. 3. Hyperlipidemia: Recommend repeating a fasting lipid profile. Her LDL should be less than 70 given her risk factors. Continue Lipitor. 4. Thank you very much for the opportunity to participate in the cardiac care of your patient.
--- NOTE | 2018-12-17 09:43 | PN.CARD_ITS ---
Subjectve: Patient seen and evaluated. Appears to be more stable today. Objective: Vital Signs Temp Pulse Resp BP Pulse Ox 99.1 F 100 24 H 139/75 H 96 12/17/18 03:38 12/17/18 09:14 12/17/18 06:41 12/17/18 09:14 12/17/18 06:41 Oxygen Delivery Method Room Air Weight: 305 lb 12.498 oz Body Mass Index (BMI) 48.3 Finger Stick Blood Glucose 575 Intake and Output for Last 24 Hours 12/15/18 12/16/18 12/17/18 23:59 23:59 23:59 Intake Total 2824 / 2824 4159.9 / 4159.9 767.7 / 767.7 Output Total 750 / 750 350 / 350 Balance 2074 / 2074 3809.9 / 3809.9 767.7 / 767.7 General: Awake, Alert, Oriented x 3 HEENT: PERRL, EOMI, Sclera Non Icteric Neck: Supple, Good ROM, No Lymph Node Enlargement Lungs: Clear to auscultation Cardiovascular: Regular Rhythm, Normal S1, Normal S2, No Murmurs, No Rubs, No Gallops Vascular: No Carotid Bruits, Normal Femoral Pulses, Normal Radial Pulses, Normal Dorsalis Pedal Pulse, Normal Posterior Tibial Pulses Abdomen: Bowel Sounds Present, Soft, Non Tender, No HSM, No Organomegaly Extremities: No Cyanosis, No Clubbing, No edema Musculoskeletal: Warmth Skin: No Rashes Lymphatic: No Lymph Node Enlargement Neurological: No Focal Motor or Sensory Deficit Psych/Mental Status: Appropriate 12/17/18 06:03: WBC 11.2 H, RBC 3.71 L, Hgb 10.8 L, Hct 32.3 L, MCV 87.1, MCH 29.1, MCHC 33.4, RDW 15.0 H, RDW Differential 48.3 H, Plt Count 209, MPV 9.1 12/17/18 06:03: Sodium 141, Potassium 3.6, Chloride 110 H, Carbon Dioxide 21.0, Anion Gap 10, BUN 23 H, Creatinine 1.21 H, Est GFR (MDRD) Af Amer 55 L, Est GFR (MDRD) Non-Af 45 L, BUN/Creatinine Ratio 19.0, Glucose 121 H, Calcium 8.8 Medical Necessity - Tobacco Use Smoking Status: Never smoker Tobacco Use: Non-smoker Assessment/Plan 1. Non-STEMI: The patient has a history of coronary disease status post stenting in the past in [place] although we do not have any of those results. She has never seen a shirt presser here at [place]. She is currently chest pain- free. Her troponin was initially 1.0 and now is decreasing. Her EKG shows old anteroseptal wall myocardial infarction and no dynamic EKG changes. At this point I will continue the patient on baby aspirin, hold her Eliquis in anticipation of possible catheterization sometime early next week, most likely via the right radial approach given her edema, and cellulitis. * Left heart cath tentatively scheduled for Tuesday. Further recommendations will depend on the results of that. 2. Atrial fibrillation: I recommend holding her Eliquis in order to safely perform her catheterization this upcoming week to me no deterioration in her cellulitis. She will need to be bridged with Lovenox 1 mg/kg subcu twice daily prior to her catheterization, starting on 12/17/2018. 3. Hyperlipidemia: Recommend repeating a fasting lipid profile. Her LDL should be less than 70 given her risk factors. Continue Lipitor. 4. Thank you very much for the opportunity to participate in the cardiac care of your patient.
[2018-12-17] MEDS: Insulin Lispro 100 UNIT/ML INSULN.PEN SQ ×2 (11:14→16:26)
[2018-12-17] MEDS: 0.9% Normal Saline 1,000 ML 15 ML IV (11:15)
--- NOTE | 2018-12-17 11:48 | PN_ITS ---
<Laura Moss - Last Filed: 12/17/18 11:48> Patient Problems: Active and Suspected Problems NSTEMI (non-ST elevated myocardial infarction) (Acute) Cellulitis of left lower extremity (Acute) Nausea vomiting and diarrhea (Acute) Subjective: Patient seen and examined. Denies further chest pain or chest pressure. URI symptoms improving. Denies fever, chills. Plan for cardiac catheterization in the morning. - Physical Exam General: Alert, Oriented x3, Cooperative HEENT: Atraumatic, PERRLA, EOMI, Normocephalic Neck: Supple, No JVD, Negative Carotid Bruits Lungs: Clear to auscultation, Diminished Cardiovascular: Regular rate, Regular Rhythm, Normal S1, Normal S2, No murmurs Abdomen: Bowel Sounds Present, Soft, Non Tender, Non-Distended Extremities: No clubbing, No cyanosis, Capillary Refill Less than 3 Seconds, Edema - Bilateral lower extremities Skin: - - Left lower extremity with erythema-improving, edema and medial calf bullae s/p drainage. Chronic stage II decub coccyx ulcer. Musculoskeletal: No Tenderness to Palpation of Joints or Extremities Neurological: Cranial nerves II-XII grossly intact, Neuro grossly intact Psych/Mental Status: Normal Affect, Appropriate Vital Signs Temp Pulse Resp BP Pulse Ox 98.8 F 88 20 H 139/75 H 96 12/17/18 09:35 12/17/18 10:00 12/17/18 10:00 12/17/18 09:35 12/17/18 10:00 Oxygen Delivery Method Room Air Weight: 305 lb 12.498 oz Body Mass Index (BMI) 48.3 Finger Stick Blood Glucose 575 Intake and Output for Last 24 Hours 12/15/18 12/16/18 12/17/18 23:59 23:59 23:59 Intake Total 2824 / 2824 4159.9 / 4159.9 767.7 / 767.7 Output Total 750 / 750 350 / 350 Balance 2074 / 2074 3809.9 / 3809.9 767.7 / 767.7 Microbiology Past 72 Hours 12/14/18 18:45 Blood Culture - Preliminary Blood Culture (Wb) - Anticubital Right No growth in 48 hours. 12/14/18 17:55 Blood Culture - Preliminary Blood Culture (Wb) - Anticubital Left No growth in 48 hours. 12/14/18 20:50 Urine Culture - Final Urine, Catheterized Culture exhibits no growth. 12/15/18 13:13 Respiratory Panel (PCR) - Final Mucosa - Nose Parainfluenza 1 Laboratory Tests Past 24 Hrs 12/17/18 12/17/18 06:03 06:03 WBC 11.2 H RBC 3.71 L Hgb 10.8 L Hct 32.3 L MCV 87.1 MCH 29.1 MCHC 33.4 RDW 15.0 H RDW Differential 48.3 H Plt Count 209 MPV 9.1 Sodium 141 Potassium 3.6 Chloride 110 H Carbon Dioxide 21.0 Anion Gap 10 BUN 23 H Creatinine 1.21 H Estim Creat Clear Calc 32.81 Est GFR (MDRD) Af Amer 55 L Est GFR (MDRD) Non-Af 45 L BUN/Creatinine Ratio 19.0 Glucose 121 H Calcium 8.8 POC Glucose 12/17/18 12/16/18 12/16/18 06:27 21:51 17:08 POC Glucose 121 H 140 H 203 H 12/16/18 12:36 POC Glucose 219 H Medical Necessity - Tobacco Use Smoking Status: Never smoker Tobacco Use: Non-smoker Assessment/Plan All Active Problems NSTEMI (non-ST elevated myocardial infarction) (Acute) Cellulitis of left lower extremity (Acute) Nausea vomiting and diarrhea (Acute) Hyponatremia (Acute) Cellulitis (Acute) Blister of toe of right foot (Acute) Hyperosmolar nonketotic coma in diabetes (Acute) Atrial fibrillation with rapid ventricular response (Acute) Urinary tract infection due to Klebsiella species (Acute) Community acquired pneumonia (Acute) Severe sepsis (Acute) New onset atrial fibrillation (Acute) Pneumonia (Acute) Acute respiratory failure with hypoxia (Acute) Rhinovirus infection (Acute) Cystitis (Acute) Sepsis (Acute) UTI (urinary tract infection) (Acute) Nephrolithiasis (Acute) 1. Acute NSTEMI-cardiology following. Plan for cardiac catheterization tentatively 12/18/2018. Continue aspirin, beta-susie, statin. Echocardiogram showed an EF of 65%. 2. Left lower extremity cellulitis with large medial calf bullae with appearance of yellow serous fluid-left lower extremity duplex ultrasound negative for DVT. Continue IV Zosyn. Wound RN consulted. Bullae drained by wound RN. Apply Silvadene followed by ABD, Kerlix and Jesus wrap. Change daily. 3. Acute UTI, ruled out-UTI initially suspected based on UA. Urine culture shows no growth. Suspect UA with contamination. 4. Acute parainfluenza 1-Respiratory panel + parainfluenza 1. Chest x-ray without acute process. Continue Singulair, Flonase regimen. Albuterol and DuoNeb aerosol. PRN Robitussin. Continue symptom management. Denies significant shortness of breath, do not feel steroids are necessary. 5. Suspected viral gastroenteritis-resolved. Patient reports family with similar symptoms prior to admission. Denies further nausea, vomiting, diarrhea. 6. Stage II coccyx decubitus ulcer, present on admission-frequent position changes, wound RN consulted. 7. CAD-holding Eliquis given plans for cardiac catheterization. Continue aspirin, statin, beta-susie. 8. Paroxysmal atrial fibrillation-continue beta-susie regimen. Eliquis on ho ld. 9. Hyperlipidemia-continue statin. 10. Hypertension-stable, continue clonidine, metoprolol regimen. 11. Hypothyroidism-continue Synthroid regimen. 12. Chronic COPD and asthma-no acute exacerbation. As needed albuterol aerosol. 13. 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 Continue home insulin regimen, Accu-Cheks ACHS with sliding scale insulin. 14. Chronic kidney disease stage III-stable, trend BMP. 15. GERD-continue home ranitidine regimen. DVT prophylaxis-SCDs, Lovenox This patient was seen by SONAM Silva under the supervision of Dr. Bean. <Rocky Bean - Last Filed: 12/17/18 12:13> - Physical Exam Vital Signs Temp Pulse Resp BP Pulse Ox 98.8 F 88 20 H 139/75 H 96 12/17/18 09:35 12/17/18 10:00 12/17/18 10:00 12/17/18 09:35 12/17/18 10:00 Oxygen Delivery Method Room Air Weight: 138.7 kg Body Mass Index (BMI) 48.3 Finger Stick Blood Glucose 575 Intake and Output for Last 24 Hours 12/15/18 12/16/18 12/17/18 23:59 23:59 23:59 Intake Total 2824 / 2824 4159.9 / 4159.9 1828.7 / 1828.7 Output Total 750 / 750 350 / 350 Balance 2073 / 2073 3809.9 / 3809.9 1828.7 / 1828.7 Microbiology Past 72 Hours 12/14/18 18:45 Blood Culture - Preliminary Blood Culture (Wb) - Anticubital Right No growth in 48 hours. 12/14/18 17:55 Blood Culture - Preliminary Blood Culture (Wb) - Anticubital Left No growth in 48 hours. 12/14/18 20:50 Urine Culture - Final Urine, Catheterized Culture exhibits no growth. 12/15/18 13:13 Respiratory Panel (PCR) - Final Mucosa - Nose Parainfluenza 1 Laboratory Tests Past 24 Hrs 12/17/18 12/17/18 06:03 06:03 WBC 11.2 H RBC 3.71 L Hgb 10.8 L Hct 32.3 L MCV 87.1 MCH 29.1 MCHC 33.4 RDW 15.0 H RDW Differential 48.3 H Plt Count 209 MPV 9.1 Sodium 141 Potassium 3.6 Chloride 110 H Carbon Dioxide 21.0 Anion Gap 10 BUN 23 H Creatinine 1.21 H Estim Creat Clear Calc 32.81 Est GFR (MDRD) Af Amer 55 L Est GFR (MDRD) Non-Af 45 L BUN/Creatinine Ratio 19.0 Glucose 121 H Calcium 8.8 POC Glucose 12/17/18 12/17/18 12/16/18 11:11 06:27 21:51 POC Glucose 274 H 121 H 140 H 12/16/18 12/16/18 17:08 12:36 POC Glucose 203 H 219 H Assessment/Plan This patient was seen in conjunction with SONAM Silva . I have independently interviewed and examined the patient and reviewed pertinent historical, laboratory, and other data. Please refer to SONAM Silva note for details of this patient's presentation, findings, and recommendations. I have reviewed SONAM Silva note and concur with documented findings. In brief, patient is a 83-year-old lady with multiple comorbidities including CAD with previous angioplasty, diabetes mellitus type 2 hypertension who presented with erythema and warmth involving the left lower extremity in addition to chest pain. An assessment of acute left lower extremity cellulitis was made. Patient was also found to have elevated troponin consistent with non- STEMI admitted to monitored bed for further management 12/16/2018. Patient seen complains of left lower extremity pain. 12/17/2018: Patient seen admit to significant improvement in the redness and swelling involving her left lower extremity. Did examine the left leg and wrapped by nursing staff. Kidney function continues to improve. Plan is for patient to undergo left heart catheterization possibly on 12/18/2018 via the radial approach Physical Examination: GENERAL: cooperative HEENT: Atraumatic; EYES; Anicteric, Normal Conjunctiva NECK; supple, normal thyroid, RESPIRATORY: Diminished to auscultation CARDIOVASCULAR: Regular S1 S2, GI: soft, non-tender, normoactive bowel sounds, : No Renal angle tenderness; NEURO: Awake; no lateralizing signs. SKIN: Erythema and warmth involving the left lower extremity PSYCH; Normal affect Assessment: 1. Acute non-STEMI: Plan for left heart catheterization on 12/18/2018 2. Left lower extremity cellulitis 3. Acute cystitis 4. Chronic kidney disease stage III 5. GERD 6. Hypertension 7. Diabetes mellitus type 2 8. Paroxysmal atrial fibrillation 9. Coronary artery disease with previous angioplasty 10. Allergic rhinitis 11. Dyslipidemia 12. Morbid obesity with BMI of 48.3 13. COPD currently not in exacerbation 14. Stage II coccyx decubitus ulcer, present on admission Recommendations: 1. I have discussed the results of my overview and impressions with the patient 2. Options for management were reviewed Code Visit Inpatient E&M: 26060 Subs Hosp L2
[2018-12-17 12:06] LABS: Bedside Glucose 274 mg/dL (70-110)
[2018-12-17 17:16] LABS: Bedside Glucose 188 mg/dL (70-110)
--- NOTE | 2018-12-17 17:41 | NURSING ---
PIV IN PATIENT'S LEFT AC WAS LEAKING, TUBING FOUND TO HAVE BEEN CAUGHT ON BED RAIL WHILE PATIENT WAS BEING ASSISTED BACK TO BED. IV CATHETER REMOVED INTACT, NO BLEEDING NOTED AT SITE, GAUZE DRESSING APPLIED. I ATTEMPTED TWICE TO START A NEW IV WITHOUT SUCCESS. COMIC ARTIST NOTIFIED.
[2018-12-17] MEDS: Montelukast 10 MG Tablet PO (22:04)
[2018-12-17] MEDS: Atorvastatin Calcium 80 MG Tablet PO (22:04)
[2018-12-17 22:41] LABS: Bedside Glucose 117 mg/dL (70-110)
[2018-12-18] VITALS (16 sets, daily range): BP systolic 129–162; BP diastolic 64–108; PULSE 76–97; RESP 16–22; TEMP 36.2–36.7; O2SAT 96–99
[2018-12-18 05:14] LABS: Hematocrit 33.2 % (37-47); Hemoglobin 10.9 g/dl (12.0-15.0); Mean Corp Hgb Conc 32.8 g/gl (32-36); Mean Corpuscular Hgb 28.7 pg (27.0-32.0); Mean Corpuscular Volume 87.4 fL (81-99); Mean Platelet Vol. 9.3 fl (6.2-12.0); Platelet Count 256 K/mm3 (150-450); RBC Distribution Width CV 14.9 % (11.6-14.6); RBC Distribution Width SD 46.8 fl (35.1-43.9); White Blood Count 12.7 K/mm3 (4.4-11.0)
[2018-12-18 05:20] LABS: International Normalized Ratio 1.2; Prothrombin Time (Protime)PT. 15.3 SECONDS (11.7-14.9)
[2018-12-18 05:21] LABS: Partial Thromboplast Time 47.2 Seconds (24.1-36.2)
[2018-12-18 05:22] LABS: Scan Indicated on CBC? Y/N NO
[2018-12-18 05:23] LABS: Anion Gap 11 (5-15); BUN 21 mg/dL (7-18); BUN/Creat Ratio 17.8 RATIO (10-20); Chloride 112 mmol/L (98-107); Creatinine, Serum 1.18 mg/dL (0.55-1.02); EST Glomerular Filtration Rate 47 mL/min (>60); Est Glom Filt Rate - Afr Amer 57 mL/min (>60); Estimated Creatinine Clearance 33.65 ml/min; Glucose 63 mg/dL (74-106); Potassium 3.7 mmol/L (3.5-5.1); Sodium Level 143 mmol/L (136-145)
[2018-12-18] MEDS: Nystatin Powder 15gm Bottle 1 APPLIC TOPICAL (05:29)
--- NOTE | 2018-12-18 05:55 | EKG12_ITS ---
Test Reason : AM EKG Blood Pressure : / mmHG Vent. Rate : 088 BPM Atrial Rate : 088 BPM P-R Int : 000 ms QRS Dur : 082 ms QT Int : 368 ms P-R-T Axes : 000 024 151 degrees QTc Int : 445 ms Atrial fibrillation Anteroseptal infarct age undetermined Nonspecific T- wave abnormality Abnormal ECG Confirmed by WADE ANDERSON, CRESCENCIO ([id number]), editorial project manager KHADIJAH GUO ([id number]) on 12/20/2018 11:56:41 AM Referred By: DR CLOUD Confirmed By:CRESCENCIO OLVERA MD
[2018-12-18] MEDS: Levothyroxine 137 MCG Tablet PO (06:24)
[2018-12-18] MEDS: Metoprolol Tartrate 25 MG Tablet PO ×2 (06:24→08:58)
[2018-12-18] MEDS: cloNIDine HCl 0.1 MG Tablet PO (06:24)
[2018-12-18] MEDS: Clopidogrel Bisulfate 75 MG Tablet PO (06:24)
[2018-12-18] MEDS: Aspirin E.C. 81 MG Tablet PO (06:24)
[2018-12-18] MEDS: Ipratropium/Albuterol Sulfate 3 ML AMPUL.NEB INHALATION (06:38)
[2018-12-18] MEDS: Dextrose 50%-Water 25 GM/50 ML DISP.SYRIN IV (06:38)
[2018-12-18 07:05] LABS: Bedside Glucose 107 mg/dL (70-110)
[2018-12-18 07:05] LABS: Bedside Glucose 65 mg/dL (70-110)
--- NOTE | 2018-12-18 08:03 | PCM.PN.CARD ---
Subjectve: Patient seen and evaluated. Underwent cardiac catheterization this morning. Objective: Vital Signs Temp Pulse Resp BP Pulse Ox 97.7 F L 90 16 157/88 H 97 12/18/18 06:18 12/18/18 07:09 12/18/18 06:38 12/18/18 06:18 12/18/18 06:18 Oxygen Delivery Method Room Air Weight: 309 lb 4.937 oz Body Mass Index (BMI) 48.3 Finger Stick Blood Glucose 575 Intake and Output for Last 24 Hours 12/16/18 12/17/18 12/18/18 23:59 23:59 23:59 Intake Total 4159.9 / 4159.9 2368.7 / 2368.7 1566 / 1566 Output Total 350 / 350 Balance 3809.9 / 3809.9 2368.7 / 2368.7 1566 / 1566 General: Awake, Alert, Oriented x 3 HEENT: PERRL, EOMI, Sclera Non Icteric Neck: Supple, Good ROM, No Lymph Node Enlargement Lungs: Clear to auscultation Cardiovascular: Irregular Rhythm, Normal S1, Normal S2, No Murmurs, No Rubs, No Gallops Vascular: No Carotid Bruits, Normal Femoral Pulses, Normal Radial Pulses, Normal Dorsalis Pedal Pulse, Normal Posterior Tibial Pulses Abdomen: Bowel Sounds Present, Soft, Non Tender, No HSM, No Organomegaly Extremities: No Cyanosis, No Clubbing, No edema Musculoskeletal: No Erythema Skin: No Rashes Lymphatic: No Lymph Node Enlargement Neurological: No Focal Motor or Sensory Deficit Psych/Mental Status: Appropriate 12/18/18 04:46: WBC 12.7 H, RBC 3.80 L, Hgb 10.9 L, Hct 33.2 L, MCV 87.4, MCH 28.7, MCHC 32.8, RDW 14.9 H, RDW Differential 46.8 H, Plt Count 256, MPV 9.3 12/18/18 04:46: PT 15.3 H, INR 1.2, APTT 47.2 H 12/18/18 04:46: Sodium 143, Potassium 3.7, Chloride 112 H, Carbon Dioxide 20.0 L, Anion Gap 11, BUN 21 H, Creatinine 1.18 H, Est GFR (MDRD) Af Amer 57 L, Est GFR (MDRD) Non-Af 47 L, BUN/Creatinine Ratio 17.8, Glucose 63 L, Calcium 9.0 Rhythm: EKG: ECHO: Stress Test: Cardiac Cath: PCI: CT Surgery: Holter monitor: EPS: PPM: CXR: Chest CT Scan: Medical Necessity - Tobacco Use Smoking Status: Never smoker Tobacco Use: Non-smoker Assessment/Plan 1. Non-STEMI: The patient has a history of coronary disease status post stenting in the past in [place] although we do not have any of those results. She has never seen a continuity clerk here at [place]. She is currently chest pain-free. Her troponin was initially 1.0 and now is decreasing. Her EKG shows old anteroseptal wall myocardial infarction and no dynamic EKG changes. Cardiac catheterization today demonstrated the following: Short normal left main coronary artery Proximal high-grade 95% left anterior descending artery lesion Previously placed mid left anterior descending artery stent patent 3 sequential 80% proximal left circumflex artery lesions First obtuse marginal branch with high-grade stenosis Left to right collaterals Visibly stented right coronary artery with totally occluded mid segment Preserved left ventricular ejection fraction Based on the above angiographic findings I would recommend coronary artery bypass surgery. Arrangements will be made to transfer the patient to a tertiary care facility later today. 2. Atrial fibrillation: We will hold off on anticoagulation for now Beta-susie to control heart rate 3. Hyperlipidemia: Aggressive risk factor modification with diet and statins. 4. Thank you very much for the opportunity to participate in the cardiac care of your patient.
--- NOTE | 2018-12-18 08:07 | PN.CARD_ITS ---
Subjectve: Patient seen and evaluated. Underwent cardiac catheterization this morning. Objective: Vital Signs Temp Pulse Resp BP Pulse Ox 97.7 F L 90 16 157/88 H 97 12/18/18 06:18 12/18/18 07:09 12/18/18 06:38 12/18/18 06:18 12/18/18 06:18 Oxygen Delivery Method Room Air Weight: 309 lb 4.937 oz Body Mass Index (BMI) 48.3 Finger Stick Blood Glucose 575 Intake and Output for Last 24 Hours 12/16/18 12/17/18 12/18/18 23:59 23:59 23:59 Intake Total 4159.9 / 4159.9 2368.7 / 2368.7 1566 / 1566 Output Total 350 / 350 Balance 3809.9 / 3809.9 2368.7 / 2368.7 1566 / 1566 General: Awake, Alert, Oriented x 3 HEENT: PERRL, EOMI, Sclera Non Icteric Neck: Supple, Good ROM, No Lymph Node Enlargement Lungs: Clear to auscultation Cardiovascular: Irregular Rhythm, Normal S1, Normal S2, No Murmurs, No Rubs, No Gallops Vascular: No Carotid Bruits, Normal Femoral Pulses, Normal Radial Pulses, Normal Dorsalis Pedal Pulse, Normal Posterior Tibial Pulses Abdomen: Bowel Sounds Present, Soft, Non Tender, No HSM, No Organomegaly Extremities: No Cyanosis, No Clubbing, No edema Musculoskeletal: No Erythema Skin: No Rashes Lymphatic: No Lymph Node Enlargement Neurological: No Focal Motor or Sensory Deficit Psych/Mental Status: Appropriate 12/18/18 04:46: WBC 12.7 H, RBC 3.80 L, Hgb 10.9 L, Hct 33.2 L, MCV 87.4, MCH 28.7, MCHC 32.8, RDW 14.9 H, RDW Differential 46.8 H, Plt Count 256, MPV 9.3 12/18/18 04:46: PT 15.3 H, INR 1.2, APTT 47.2 H 12/18/18 04:46: Sodium 143, Potassium 3.7, Chloride 112 H, Carbon Dioxide 20.0 L , Anion Gap 11, BUN 21 H, Creatinine 1.18 H, Est GFR (MDRD) Af Amer 57 L, Est GFR (MDRD) Non-Af 47 L, BUN/Creatinine Ratio 17.8, Glucose 63 L, Calcium 9.0 Rhythm: EKG: ECHO: Stress Test: Cardiac Cath: PCI: CT Surgery: Holter monitor: EPS: PPM: CXR: Chest CT Scan: Medical Necessity - Tobacco Use Smoking Status: Never smoker Tobacco Use: Non-smoker Assessment/Plan 1. Non-STEMI: The patient has a history of coronary disease status post stenting in the past in [place] although we do not have any of those results. She has never seen a sales solutions representative here at [place]. She is currently chest pain- free. Her troponin was initially 1.0 and now is decreasing. Her EKG shows old anteroseptal wall myocardial infarction and no dynamic EKG changes. Cardiac catheterization today demonstrated the following: Short normal left main coronary artery Proximal high-grade 95% left anterior descending artery lesion Previously placed mid left anterior descending artery stent patent 3 sequential 80% proximal left circumflex artery lesions First obtuse marginal branch with high-grade stenosis Left to right collaterals Visibly stented right coronary artery with totally occluded mid segment Preserved left ventricular ejection fraction Based on the above angiographic findings I would recommend coronary artery bypass surgery. Arrangements will be made to transfer the patient to a tertiary care facility later today. 2. Atrial fibrillation: We will hold off on anticoagulation for now Beta-susie to control heart rate 3. Hyperlipidemia: Aggressive risk factor modification with diet and statins. 4. Thank you very much for the opportunity to participate in the cardiac care of your patient.
--- NOTE | 2018-12-18 08:14 | CL.D_ITS ---
Patient Name: TUAN BARNETT Study Date: 12/18/2018 Performing: Agus López MD Ht: 65 inches 165 cm : 1935 Wt: 309.1 lbs 140 kg Age: 83 Gender: female BSA: 2.38 PROCEDURE(S) PERFORMED PG95-LHP/COR/LV CLINICAL PROFILE AND INDICATIONS Indications: ACS <= 24 hrs Heart Failure: None Stress/Imaging Stress/Image Study Performed: No CONCLUSIONS Severe three-vessel disease involving the proximal left anterior descending artery, sequential proxim al and mid left circumflex artery and a totally occluded right coronary artery with [id number] col laterals. Preserved ejection fraction is noted RECOMMENDATIONS Surgery consult for coronary revascularization DESCRIPTION OF PROCEDURE The patient arrived to the procedure lab. The risks and benefits of the procedure as well as a full d escription of our services here and current unavailability of surgical backup were fully explained to the patient and/or their significant other prior to the catheterization. The Timeout was completed, verifying the correct patient and procedure. The patient's procedural site was prepped and draped in the usual fashion. Local anesthetic was given subcutaneously to right radial region with Lidocaine 2% . Using a modified Seldinger technique, arterial access was obtained via the right radial artery, a 6 Fr sheath was inserted. Left Coronary Artery selective angiography was performed in multiple views u sing a 5 Fr. 4.0 Linn catheter. Left Ventriculography was performed in SHEEHAN projection using a 5 Fr. Pigtail catheter. LV to AO pullback pressures were then recorded.The arterial sheath was pulled and a TR Band was applied for hemostasis, 12cc of air in the TR Band CORONARY ANGIOGRAPHY DOMINANCE: Co- Dominant LEFT HEART ASSESSMENT Left Ventricular Ejection Fraction: by LV Gram 65 % Normal LV wall motion Normal Left Ventricular systolic function LEFT MAIN: Mild calcification, No significant disease noted LEFT ANTERIOR DESCENDING ARTERY: OSTIAL LAD: 95 % Stenosis MID LAD: Previously placed stent is patent CIRCUMFLEX ARTERY: OSTIAL CIRC: 85 % Stenosis MID CIRC: Sequential 80% stenosis OM 1: Proximal - Diffusely diseased up to 70 % RIGHT CORONARY ARTERY: MID RCA: is occluded COLLATERAL FLOW: Collateral flow from Left to Right COMPLICATIONS No Complications PROCEDURE MEDICATIONS Fentanyl 50 mcg IV Versed 1 mg IV Versed 1 mg IV Oxygen: 2 L/min via nasal cannula Heparin diluted in 23cc Heparinized saline. Patient given 10cc IA of this solution. 12/18/2018 07:44: 04 Lasix 40 mg IV 12/18/2018 08:01:08 Verapamil 2.5mg, Ntg 100mcgs, 2000 units of Heparin diluted in 23cc Heparinized saline. Patient give n 10cc IA of this solution. 12/18/2018 07:44:04 SUMMARY OF HEMODYNAMIC DATA Time AIR REST ECG 07:28:06 AO 123/64 (87) SA 07:47:45 LV 118/8, 26 07:57:46 LV 114/14, 18 07:58:35 LVp 118/12, 27 07:58:41 AOp 119/59 (82) 07:58:46 Signed By Agus López MD On 12/18/2018 08:12:49 Agus López MD
[2018-12-18] MEDS: Menthol/Lanolin/Calamine/Znox 113 GM Tube 1 APPLIC TOPICAL (08:58)
[2018-12-18] MEDS: Famotidine 20 MG Tablet PO (08:58)
[2018-12-18] MEDS: Fluticasone 0.05% 1 SPRAY NASAL.SRY NASAL (08:59)
[2018-12-18] MEDS: Insulin NPH Human 100 UNITS/ML PEN 35 UNITS SC (09:04)
[2018-12-18] MEDS: Insulin Lispro 100 UNIT/ML INSULN.PEN 13 UNIT SC ×2 (09:04→12:50)
[2018-12-18 09:16] LABS: Bedside Glucose 102 mg/dL (70-110)
--- NOTE | 2018-12-18 09:18 | CASEMGMT ---
[facility], the following are in-network tertiary facilities: [facility], [place], [facility], [place], [facility], [facility], [place], [facility], and . Yenni BOLAND CM
[2018-12-18] MEDS: Acetaminophen 325 MG Tablet 650 MG PO (12:47)
[2018-12-18] MEDS: Glucerna Shake 120 ML LIQUID PO (12:48)
--- NOTE | 2018-12-18 12:59 | PCM.DC.SUM ---
<Laura Moss - Last Filed: 12/18/18 13:07> Discharge Date and Diagnosis Date of Admission: 12/14/18 Date of Discharge: 12/18/18 - Primary Discharge Diagnosis Active and Suspected Problems 1. Acute NSTEMI, CAD requiring transfer for coronary artery bypass surgery. 2. Left lower extremity cellulitis 3. Acute UTI, ruled out 4. Acute parainfluenza 1 5. Suspected viral gastroenteritis-resolved. 6. Stage II coccyx decubitus ulcer, present on admission 7. CAD 8. Paroxysmal atrial fibrillation 9. Hyperlipidemia 10. Hypertension 11. Hypothyroidism 12. Chronic COPD and asthma 13. Type 2 diabetes mellitus with neuropathy 14. Chronic kidney disease stage III 15. 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 There is focal 6.8 cm soft tissue density medial and posterior to the mid diaphysis of the tibia. This is suspicious for soft tissue mass versus infectious inflammatory process. This could be further evaluated with MRI or CT if clinically warranted No acute fractures Tricompartmental osteoarthrosis of the knee Electronically Signed: Joss Castaneda at 20:30 EDT Tel , Service support , Chest X-Ray 12/14/18 19:05 IMPRESSION: Mild left lower lobe infiltrate Electronically Signed: Joss Castaneda, at 20:39 EDT Tel , Service support , Consultations 12/14/18 21:44 Consult: Onc/Wound/ballet soloist Routine Comment: Dr. López- Cardiology Operations: None, - Procedures: 2-D Echocardiogram, Cardiac catheterization Summary of Care Provided: The patient is a 83 year old F admitted 12/14/2018 due to left lower extremity pain, edema and redness as well as chest pressure. 1. Acute NSTEMI-Continue aspirin, beta-susie, statin. Echocardiogram showed an EF of 65%. Patient underwent cardiac catheterization which showed severe three-vessel disease involving the proximal left anterior descending artery, sequential proximal and mid left circumflex artery and totally occluded right coronary artery with [id number] collaterals. Cardiology recommended transfer to tertiary facility for coronary artery bypass surgery. Patient stable at time of transfer to [facility]. 2. Left lower extremity cellulitis with large medial calf bullae with appearance of yellow serous fluid-left lower extremity duplex ultrasound negative for DVT. IV Zosyn during admission. Wound RN consulted. Bullae drained by wound RN. Apply Silvadene followed by ABD, Kerlix and Jesus wrap. Change daily. 3. Acute UTI, ruled out-UTI initially suspected based on UA. Urine culture shows no growth. Suspect UA with contamination. 4. Acute parainfluenza 1-Respiratory panel + parainfluenza 1. Chest x-ray without acute process. Continue Singulair, Flonase regimen. Albuterol and DuoNeb aerosol. PRN Robitussin. Continue symptom management. 5. Suspected viral gastroenteritis-resolved. Patient reports family with similar symptoms prior to admission. Denies further nausea, vomiting, diarrhea. 6. Stage II coccyx decubitus ulcer, present on admission-frequent position changes, wound RN consulted. 7. CAD-holding Eliquis. Continue aspirin, statin, beta-susie. 8. Paroxysmal atrial fibrillation-continue beta-susie regimen. Eliquis on hold. 9. Hyperlipidemia-continue statin. 10. Hypertension-stable, continue clonidine, metoprolol regimen. 11. Hypothyroidism-continue Synthroid regimen. 12. Chronic COPD and asthma-no acute exacerbation. As needed albuterol aerosol. 13. 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 Continue home insulin regimen, Accu-Cheks ACHS with sliding scale insulin. 14. Chronic kidney disease stage III-stable, trend BMP. 15. GERD-continue home ranitidine regimen. General: Alert, Oriented x3, Cooperative HEENT: Atraumatic, PERRLA, EOMI, Normocephalic Neck: Supple, No JVD, Negative Carotid Bruits Lungs: Clear to auscultation, Diminished Cardiovascular: Regular rate, Regular Rhythm, Normal S1, Normal S2, No murmurs Abdomen: Bowel Sounds Present, Soft, Non Tender, Non-Distended Extremities: No clubbing, No cyanosis, Capillary Refill Less than 3 Seconds, Edema - Bilateral lower extremities Skin: - - Left lower extremity with erythema-improving, edema and medial calf bullae s/p drainage. Chronic stage II decub coccyx ulcer. Musculoskeletal: No Tenderness to Palpation of Joints or Extremities Neurological: Cranial nerves II-XII grossly intact, Neuro grossly intact Psych/Mental Status: Normal Affect, Appropriate Patient seen and examined prior to discharge. Physical assessment as noted above. Patient is stable at time of transfer to tertiary facility for coronary artery bypass surgery. This patient was seen by SONAM Silva under the supervision of Dr. Martell. - Physical Exam Vital Signs Temp Pulse Resp BP Pulse Ox 97.8 F 92 22 H 150/72 H 97 12/18/18 10:00 12/18/18 10:30 12/18/18 10:30 12/18/18 10:30 12/18/18 10:30 Oxygen Delivery Method Room Air Weight: 309 lb 4.937 oz Body Mass Index (BMI) 48.3 Finger Stick Blood Glucose 575 Intake and Output for Last 24 Hours 12/16/18 12/17/18 12/18/18 23:59 23:59 23:59 Intake Total 4159.9 / 4159.9 2368.7 / 2368.7 2143 / 2143 Output Total 350 / 350 Balance 3809.9 / 3809.9 2368.7 / 2368.7 2143 / 2143 Microbiology Past 72 Hours 12/14/18 18:45 Blood Culture - Preliminary Blood Culture (Wb) - Anticubital Right No growth in 48 hours. 12/14/18 17:55 Blood Culture - Preliminary Blood Culture (Wb) - Anticubital Left No growth in 48 hours. 12/14/18 20:50 Urine Culture - Final Urine, Catheterized Culture exhibits no growth. 12/15/18 13:13 Respiratory Panel (PCR) - Final Mucosa - Nose Parainfluenza 1 Laboratory Tests Past 24 Hrs 12/18/18 12/18/18 12/18/18 04:46 04:46 04:46 WBC 12.7 H RBC 3.80 L Hgb 10.9 L Hct 33.2 L MCV 87.4 MCH 28.7 MCHC 32.8 RDW 14.9 H RDW Differential 46.8 H Plt Count 256 MPV 9.3 PT 15.3 H INR 1.2 APTT 47.2 H Sodium 143 Potassium 3.7 Chloride 112 H Carbon Dioxide 20.0 L Anion Gap 11 BUN 21 H Creatinine 1.18 H Estim Creat Clear Calc 33.65 Est GFR (MDRD) Af Amer 57 L Est GFR (MDRD) Non-Af 47 L BUN/Creatinine Ratio 17.8 Glucose 63 L Calcium 9.0 POC Glucose 12/18/18 12/18/18 12/18/18 09:02 07:02 06:32 POC Glucose 102 107 65 L 12/17/18 12/17/18 22:09 16:22 POC Glucose 117 H 188 H Home Medications: Medications to take at Discharge Metoprolol Tartrate [Lopressor (beta susie)] 25 mg PO BID 07/07/14 Ranitidine [Zantac] 150 mg PO BID 06/18/16 Nitroglycerin (INPATIENT USE) [Nitrostat] 0.4 mg SUBLINGUAL Q5M PRN 11/18/16 Acetaminophen [Tylenol] 1,000 mg PO Q8H PRN tablet 12/28/16 Albuterol Aerosols [Ventolin Aerosols] 2.5 mg INHALATION Q6H PRN PRN #60 12/28/16 Menthol/Lanolin/Calamine/Znox [Calmoseptine Ointment] 1 applic TOPICAL TID #1 tube 12/28/16 Apixaban [Eliquis] 2.5 mg PO BID 12/14/18 Atorvastatin Calcium [Lipitor] 80 mg PO QHS 12/14/18 Cholecalciferol (Vitamin D3) [Vitamin D3] 8,000 unit PO DAILY 12/14/18 Clonidine HCl [Catapres] 0.1 mg PO BID 12/14/18 Fluticasone 0.05% [Flonase Nasal [place]] 1 spray NASAL DAILY PRN PRN 12/14/18 Hydrochlorothiazide 12.5 mg PO DAILY 12/14/18 Insulin NPH Hum/Reg Insulin Hm [Relion Novolin 70-30 Vial] 10 units SQ TIDCM 12/14/18 Insulin NPH Human Isophane [Novolin N] 35 units SQ BID 12/14/18 Levothyroxine Sodium [Synthroid] 137 mcg PO DAILY 12/14/18 Montelukast [Singulair] 10 mg PO QHS 12/14/18 Olopatadine HCl 1 drop EACH EYE DAILY 12/14/18 Primary Care Physician: Nicola Dailey MD [STAFF PHYSICIAN] - Disposition: Acute care Hospital Minutes spent on discharge:: 35 Patient Condition:: Stable Medical Necessity - Tobacco Use Smoking Status: Never smoker Tobacco Use: Non-smoker Meaningful Use Info Meaningful Use Diagnoses (Choose all that apply): None applicable <Nigel Martell E - Last Filed: 12/18/18 13:37> Discharge Date and Diagnosis - Secondary Discharge Diagnosis Chronic Problems CRI (chronic renal insufficiency) (Chronic) Morbid obesity (Chronic) H/O coronary angioplasty (Chronic) Tinea unguium (Chronic) Vitamin D deficiency (Chronic) GERD (gastroesophageal reflux disease) (Chronic) Hyperlipidemia (Chronic) Hypertension (Chronic) Diabetes mellitus (Chronic) COLD (chronic obstructive lung disease) (Chronic) 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 This patient was admitted because of left lower extremity increasing edema, pain and swelling as well as vague left-sided chest discomfort/pain and she was found to have left lower extremity cellulitis as well as acute non-ST elevation IL. Venous Doppler of the left lower extremity revealed no evidence of acute DVT. Patient was treated with IV Zosyn. Swelling and erythema of the left lower extremity improved. Urine and blood cultures were negative. She was found to have acute non-ST elevation IL. Her EKG revealed no evidence of acute ischemic changes. Troponin was elevated and highest was 1.05. Cardiology consulted and patient underwent cardiac catheterization that revealed severe three-vessel disease involving the proximal left anterior descending artery, proximal and mid left circumflex and totally occluded RCA with [id number] collaterals and an ejection fraction was preserved. Cardiology recommended transfer to tertiary care center for CABG. She tested positive for acute parainfluenza 1. Patient transferred to tertiary [facility] for CABG in a stable condition. - Physical Exam General: Alert, Oriented x3, Cooperative, No apparent distress. HEENT: Atraumatic, PERRLA, EOMI. Neck: Supple, No JVD, Negative Carotid Bruits, Trachea Midline, Thyroid Normal. Lungs: Diminished breath sounds bilateral, otherwise clear , No rhonchi, No wheeze, No rales. Cardiovascular: Regular rate, Regular Rhythm, Normal S1, Normal S2, PMI Normal. Abdomen: Bowel Sounds Present, Soft, Non Tender, Non-Distended, No Hepato-splenomegaly, obese. Extremities: No clubbing, No cyanosis, edema. Left leg: Erythema and swelling with medial calf bullae with drainage, it is improving Skin: No rashes, No breakdown Neurological: Neuro grossly intact Vital Signs are stable. This note was generated with [employer]ashChart dictation software. It may contain incorrect words, spelling, and punctuation that were not noted in checking the note before signing. - Physical Exam Vital Signs Temp Pulse Resp BP Pulse Ox 97.8 F 92 22 H 150/72 H 97 12/18/18 10:00 12/18/18 10:30 12/18/18 10:30 12/18/18 10:30 12/18/18 10:30 Oxygen Delivery Method Room Air Weight: 309 lb 4.937 oz Body Mass Index (BMI) 48.3 Finger Stick Blood Glucose 575 Intake and Output for Last 24 Hours 12/16/18 12/17/18 12/18/18 23:59 23:59 23:59 Intake Total 4159.9 / 4159.9 2368.7 / 2368.7 2143 / 2143 Output Total 350 / 350 Balance 3809.9 / 3809.9 2368.7 / 2368.7 2143 / 2143 Microbiology Past 72 Hours 12/14/18 18:45 Blood Culture - Preliminary Blood Culture (Wb) - Anticubital Right No growth in 48 hours. 12/14/18 17:55 Blood Culture - Preliminary Blood Culture (Wb) - Anticubital Left No growth in 48 hours. 12/14/18 20:50 Urine Culture - Final Urine, Catheterized Culture exhibits no growth. 12/15/18 13:13 Respiratory Panel (PCR) - Final Mucosa - Nose Parainfluenza 1 Laboratory Tests Past 24 Hrs 12/18/18 12/18/18 12/18/18 04:46 04:46 04:46 WBC 12.7 H RBC 3.80 L Hgb 10.9 L Hct 33.2 L MCV 87.4 MCH 28.7 MCHC 32.8 RDW 14.9 H RDW Differential 46.8 H Plt Count 256 MPV 9.3 PT 15.3 H INR 1.2 APTT 47.2 H Sodium 143 Potassium 3.7 Chloride 112 H Carbon Dioxide 20.0 L Anion Gap 11 BUN 21 H Creatinine 1.18 H Estim Creat Clear Calc 33.65 Est GFR (MDRD) Af Amer 57 L Est GFR (MDRD) Non-Af 47 L BUN/Creatinine Ratio 17.8 Glucose 63 L Calcium 9.0 POC Glucose 12/18/18 12/18/18 12/18/18 12:47 09:02 07:02 POC Glucose 149 H 102 107 12/18/18 12/17/18 12/17/18 06:32 22:09 16:22 POC Glucose 65 L 117 H 188 H Disposition: Acute care Hospital Minutes spent on discharge:: 35 Patient Condition:: Stable Meaningful Use Info Meaningful Use Diagnoses (Choose all that apply): None applicable Code Visit Inpatient E&M: 97338 Disch Hosp
[2018-12-18 13:05] LABS: Bedside Glucose 149 mg/dL (70-110)
--- NOTE | 2018-12-18 13:06 | DS.PCM_ITS ---
<Laura Moss - Last Filed: 12/18/18 13:07> Discharge Date and Diagnosis Date of Admission: 12/14/18 Date of Discharge: 12/18/18 - Primary Discharge Diagnosis Active and Suspected Problems 1. Acute NSTEMI, CAD requiring transfer for coronary artery bypass surgery. 2. Left lower extremity cellulitis 3. Acute UTI, ruled out 4. Acute parainfluenza 1 5. Suspected viral gastroenteritis-resolved. 6. Stage II coccyx decubitus ulcer, present on admission 7. CAD 8. Paroxysmal atrial fibrillation 9. Hyperlipidemia 10. Hypertension 11. Hypothyroidism 12. Chronic COPD and asthma 13. Type 2 diabetes mellitus with neuropathy 14. Chronic kidney disease stage III 15. 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 There is focal 6.8 cm soft tissue density medial and posterior to the mid diaphysis of the tibia. This is suspicious for soft tissue mass versus infectious inflammatory process. This could be further evaluated with MRI or CT if clinically warranted No acute fractures Tricompartmental osteoarthrosis of the knee Electronically Signed: Joss Castaneda at 20:30 EDT Tel , Service support , Chest X-Ray 12/14/18 19:05 IMPRESSION: Mild left lower lobe infiltrate Electronically Signed: Joss Castaneda, at 20:39 EDT Tel , Service support , Consultations 12/14/18 21:44 Consult: Onc/Wound/logging equipment operator Routine Comment: Dr. López- Cardiology Operations: None, - Procedures: 2-D Echocardiogram, Cardiac catheterization Summary of Care Provided: The patient is a 83 year old F admitted 12/14/2018 due to left lower extremity pain, edema and redness as well as chest pressure. 1. Acute NSTEMI-Continue aspirin, beta-susie, statin. Echocardiogram showed an EF of 65%. Patient underwent cardiac catheterization which showed severe three-vessel disease involving the proximal left anterior descending artery, sequential proximal and mid left circumflex artery and totally occluded right coronary artery with [id number] collaterals. Cardiology recommended transfer to tertiary facility for coronary artery bypass surgery. Patient stable at time of transfer to [facility]. 2. Left lower extremity cellulitis with large medial calf bullae with appearance of yellow serous fluid-left lower extremity duplex ultrasound negative for DVT. IV Zosyn during admission. Wound RN consulted. Bullae drained by wound RN. Apply Silvadene followed by ABD, Kerlix and Jesus wrap. Change daily. 3. Acute UTI, ruled out-UTI initially suspected based on UA. Urine culture shows no growth. Suspect UA with contamination. 4. Acute parainfluenza 1-Respiratory panel + parainfluenza 1. Chest x-ray without acute process. Continue Singulair, Flonase regimen. Albuterol and DuoNeb aerosol. PRN Robitussin. Continue symptom management. 5. Suspected viral gastroenteritis-resolved. Patient reports family with s imilar symptoms prior to admission. Denies further nausea, vomiting, diarrhea. 6. Stage II coccyx decubitus ulcer, present on admission-frequent position changes, wound RN consulted. 7. CAD-holding Eliquis. Continue aspirin, statin, beta-susie. 8. Paroxysmal atrial fibrillation-continue beta-susie regimen. Eliquis on hold. 9. Hyperlipidemia-continue statin. 10. Hypertension-stable, continue clonidine, metoprolol regimen. 11. Hypothyroidism-continue Synthroid regimen. 12. Chronic COPD and asthma-no acute exacerbation. As needed albuterol aerosol. 13. 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 Continue home insulin regimen, Accu-Cheks ACHS with sliding scale insulin. 14. Chronic kidney disease stage III-stable, trend BMP. 15. GERD-continue home ranitidine regimen. General: Alert, Oriented x3, Cooperative HEENT: Atraumatic, PERRLA, EOMI, Normocephalic Neck: Supple, No JVD, Negative Carotid Bruits Lungs: Clear to auscultation, Diminished Cardiovascular: Regular rate, Regular Rhythm, Normal S1, Normal S2, No murmurs Abdomen: Bowel Sounds Present, Soft, Non Tender, Non-Distended Extremities: No clubbing, No cyanosis, Capillary Refill Less than 3 Seconds, Edema - Bilateral lower extremities Skin: - - Left lower extremity with erythema-improving, edema and medial calf bullae s/p drainage. Chronic stage II decub coccyx ulcer. Musculoskeletal: No Tenderness to Palpation of Joints or Extremities Neurological: Cranial nerves II-XII grossly intact, Neuro grossly intact Psych/Mental Status: Normal Affect, Appropriate Patient seen and examined prior to discharge. Physical assessment as noted above. Patient is stable at time of transfer to tertiary facility for coronary artery bypass surgery. This patient was seen by SONAM Silva under the supervision of Dr. Martell. - Physical Exam Vital Signs Temp Pulse Resp BP Pulse Ox 97.8 F 92 22 H 150/72 H 97 12/18/18 10:00 12/18/18 10:30 12/18/18 10:30 12/18/18 10:30 12/18/18 10:30 Oxygen Delivery Method Room Air Weight: 309 lb 4.937 oz Body Mass Index (BMI) 48.3 Finger Stick Blood Glucose 575 Intake and Output for Last 24 Hours 12/16/18 12/17/18 12/18/18 23:59 23:59 23:59 Intake Total 4159.9 / 4159.9 2368.7 / 2368.7 2143 / 2143 Output Total 350 / 350 Balance 3809.9 / 3809.9 2368.7 / 2368.7 2143 / 2143 Microbiology Past 72 Hours 12/14/18 18:45 Blood Culture - Preliminary Blood Culture (Wb) - Anticubital Right No growth in 48 hours. 12/14/18 17:55 Blood Culture - Preliminary Blood Culture (Wb) - Anticubital Left No growth in 48 hours. 12/14/18 20:50 Urine Culture - Final Urine, Catheterized Culture exhibits no growth. 12/15/18 13:13 Respiratory Panel (PCR) - Final Mucosa - Nose Parainfluenza 1 Laboratory Tests Past 24 Hrs 12/18/18 12/18/18 12/18/18 04:46 04:46 04:46 WBC 12.7 H RBC 3.80 L Hgb 10.9 L Hct 33.2 L MCV 87.4 MCH 28.7 MCHC 32.8 RDW 14.9 H RDW Differential 46.8 H Plt Count 256 MPV 9.3 PT 15.3 H INR 1.2 APTT 47.2 H Sodium 143 Potassium 3.7 Chloride 112 H Carbon Dioxide 20.0 L Anion Gap 11 BUN 21 H Creatinine 1.18 H Estim Creat Clear Calc 33.65 Est GFR (MDRD) Af Amer 57 L Est GFR (MDRD) Non-Af 47 L BUN/Creatinine Ratio 17.8 Glucose 63 L Calcium 9.0 POC Glucose 12/18/18 12/18/18 12/18/18 09:02 07:02 06:32 POC Glucose 102 107 65 L 12/17/18 12/17/18 22:09 16:22 POC Glucose 117 H 188 H Home Medications: Medications to take at Discharge Metoprolol Tartrate [Lopressor (beta susie)] 25 mg PO BID 07/07/14 Ranitidine [Zantac] 150 mg PO BID 06/18/16 Nitroglycerin (INPATIENT USE) [Nitrostat] 0.4 mg SUBLINGUAL Q5M PRN 11/18/16 Acetaminophen [Tylenol] 1,000 mg PO Q8H PRN tablet 12/28/16 Albuterol Aerosols [Ventolin Aerosols] 2.5 mg INHALATION Q6H PRN PRN #60 12/28/16 Menthol/Lanolin/Calamine/Znox [Calmoseptine Ointment] 1 applic TOPICAL TID #1 tube 12/28/16 Apixaban [Eliquis] 2.5 mg PO BID 12/14/18 Atorvastatin Calcium [Lipitor] 80 mg PO QHS 12/14/18 Cholecalciferol (Vitamin D3) [Vitamin D3] 8,000 unit PO DAILY 12/14/18 Clonidine HCl [Catapres] 0.1 mg PO BID 12/14/18 Fluticasone 0.05% [Flonase Nasal Linch] 1 spray NASAL DAILY PRN PRN 12/14/18 Hydrochlorothiazide 12.5 mg PO DAILY 12/14/18 Insulin NPH Hum/Reg Insulin Hm [Relion Novolin 70-30 Vial] 10 units SQ TIDCM 12/14/18 Insulin NPH Human Isophane [Novolin N] 35 units SQ BID 12/14/18 Levothyroxine Sodium [Synthroid] 137 mcg PO DAILY 12/14/18 Montelukast [Singulair] 10 mg PO QHS 12/14/18 Olopatadine HCl 1 drop EACH EYE DAILY 12/14/18 Primary Care Physician: Nicola Dailey MD [STAFF PHYSICIAN] - Disposition: Acute care Hospital Minutes spent on discharge:: 35 Patient Condition:: Stable Medical Necessity - Tobacco Use Smoking Status: Never smoker Tobacco Use: Non-smoker Meaningful Use Info Meaningful Use Diagnoses (Choose all that apply): None applicable <[email or web address] - Last Filed: 12/18/18 13:37> Discharge Date and Diagnosis - Secondary Discharge Diagnosis Chronic Problems CRI (chronic renal insufficiency) (Chronic) Morbid obesity (Chronic) H/O coronary angioplasty (Chronic) Tinea unguium (Chronic) Vitamin D deficiency (Chronic) GERD (gastroesophageal reflux disease) (Chronic) Hyperlipidemia (Chronic) Hypertension (Chronic) Diabetes mellitus (Chronic) COLD (chronic obstructive lung disease) (Chronic) 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 This patient was admitted because of left lower extremity increasing edema, pain and swelling as well as vague left-sided chest discomfort/pain and she was found to have left lower extremity cellulitis as well as acute non-ST elevation SC. Venous Doppler of the left lower extremity revealed no evidence of acute DVT. Patient was treated with IV Zosyn. Swelling and erythema of the left lower extremity improved. Urine and blood cultures were negative. She was found to have acute non-ST elevation SC. Her EKG revealed no evidence of acute ischemic changes. Troponin was elevated and highest was 1.05. Cardiology consulted and patient underwent cardiac catheterization that revealed severe three-vessel disease involving the proximal left anterior descending artery, proximal and mid left circumflex and totally occluded RCA with [id number] collaterals and an ejection fraction was preserved. Cardiology recommended transfer to tertiary care center for CABG. She tested positive for acute parainfluenza 1. Patient transferred to tertiary [facility] for CABG in a stable condition. - Physical Exam General: Alert, Oriented x3, Cooperative, No apparent distress. HEENT: Atraumatic, PERRLA, EOMI. Neck: Supple, No JVD, Negative Carotid Bruits, Trachea Midline, Thyroid Normal. Lungs: Diminished breath sounds bilateral, otherwise clear , No rhonchi, No wheeze, No rales. Cardiovascular: Regular rate, Regular Rhythm, Normal S1, Normal S2, PMI Normal. Abdomen: Bowel Sounds Present, Soft, Non Tender, Non-Distended, No Hepato- splenomegaly, obese. Extremities: No clubbing, No cyanosis, edema. Left leg: Erythema and swelling with medial calf bullae with drainage, it is improving Skin: No rashes, No breakdown Neurological: Neuro grossly intact Vital Signs are stable. This note was generated with [employer] dictation software. It may contain incorrect words, spelling, and punctuation that were not noted in checking the note before signing. - Physical Exam Vital Signs Temp Pulse Resp BP Pulse Ox 97.8 F 92 22 H 150/72 H 97 12/18/18 10:00 12/18/18 10:30 12/18/18 10:30 12/18/18 10:30 12/18/18 10:30 Oxygen Delivery Method Room Air Weight: 309 lb 4.937 oz Body Mass Index (BMI) 48.3 Finger Stick Blood Glucose 575 Intake and Output for Last 24 Hours 12/16/18 12/17/18 12/18/18 23:59 23:59 23:59 Intake Total 4159.9 / 4159.9 2368.7 / 2368.7 2143 / 2143 Output Total 350 / 350 Balance 3809.9 / 3809.9 2368.7 / 2368.7 2143 / 2143 Microbiology Past 72 Hours 12/14/18 18:45 Blood Culture - Preliminary Blood Culture (Wb) - Anticubital Right No growth in 48 hours. 12/14/18 17:55 Blood Culture - Preliminary Blood Culture (Wb) - Anticubital Left No growth in 48 hours. 12/14/18 20:50 Urine Culture - Final Urine, Catheterized Culture exhibits no growth. 12/15/18 13:13 Respiratory Panel (PCR) - Final Mucosa - Nose Parainfluenza 1 Laboratory Tests Past 24 Hrs 12/18/18 12/18/18 12/18/18 04:46 04:46 04:46 WBC 12.7 H RBC 3.80 L Hgb 10.9 L Hct 33.2 L MCV 87.4 MCH 28.7 MCHC 32.8 RDW 14.9 H RDW Differential 46.8 H Plt Count 256 MPV 9.3 PT 15.3 H INR 1.2 APTT 47.2 H Sodium 143 Potassium 3.7 Chloride 112 H Carbon Dioxide 20.0 L Anion Gap 11 BUN 21 H Creatinine 1.18 H Estim Creat Clear Calc 33.65 Est GFR (MDRD) Af Amer 57 L Est GFR (MDRD) Non-Af 47 L BUN/Creatinine Ratio 17.8 Glucose 63 L Calcium 9.0 POC Glucose 12/18/18 12/18/18 12/18/18 12:47 09:02 07:02 POC Glucose 149 H 102 107 12/18/18 12/17/18 12/17/18 06:32 22:09 16:22 POC Glucose 65 L 117 H 188 H Disposition: Acute care Hospital Minutes spent on discharge:: 35 Patient Condition:: Stable Meaningful Use Info Meaningful Use Diagnoses (Choose all that apply): None applicable Code Visit Inpatient E&M: 77227 Disch Hosp
--- NOTE | 2018-12-18 15:02 | NEWVISION ---
Report called to KRYSTIAN Man at [facility]
--- NOTE | 2018-12-18 15:14 | NURSING ---
wound photo: left lower leg
--- NOTE | 2018-12-18 15:15 | NURSING ---
wound photo: left lower leg (medial view)
== END 2018-12-18 16:00 | disposition short-term general hospital (02) | DRG 281 ==
LOC: ED 19:44 → PCU 21:05
PROVIDERS: Internal Medicine; Nurse Practitioner Family; Admitting Provider Family Medicine; Emergency Provider Emergency Medicine; Visit Provider Hospitalist
DX: I21.4 Non-ST elevation (NSTEMI) myocardial infarction (principal); Z68.42 Body mass index [BMI] 45.0-49.9, adult; L03.116 Cellulitis of left lower limb; E66.01 Morbid (severe) obesity due to excess calories; E11.40 Type 2 diabetes mellitus with diabetic neuropathy, unspecified; E11.22 Type 2 diabetes mellitus with diabetic chronic kidney disease; N18.3 Chronic kidney disease, stage 3 (moderate); I25.10 Atherosclerotic heart disease of native coronary artery without angina pectoris; L89.152 Pressure ulcer of sacral region, stage 2; I48.0 Paroxysmal atrial fibrillation; J44.9 Chronic obstructive pulmonary disease, unspecified; E03.9 Hypothyroidism, unspecified; E78.5 Hyperlipidemia, unspecified; K21.9 Gastro-esophageal reflux disease without esophagitis; B34.8 Other viral infections of unspecified site; A08.4 Viral intestinal infection, unspecified; R23.8 Other skin changes; Z79.4 Long term (current) use of insulin; E55.9 Vitamin D deficiency, unspecified; Z95.5 Presence of coronary angioplasty implant and graft; I10 Essential (primary) hypertension
CPT/HCPCS: 36415; 71045; 73590; 73630; 80048; 80053; 80061; 81001; 82962; 83605; 83735; 84484; 85025; 85027; 85610; 85730; 87040; 87086; 87633; 93005; 93306; 93458; 93971; 94640; 97162; 97166; 99152; 99153; 99285; J7030; J7040; J7050; Q9957; A4216; C1769; C1894; J1940; Q9967